=== PATIENT | female | born 1975 | race Caucasian/White ===

== ENCOUNTER 2017-10-24 00:38 | Emergency (ER) | payer BC ==
[2017-10-24 00:55] VITALS: BP 150/101; PULSE 100; RESP 18; TEMP 98.2
[2017-10-24] MEDS ORDERED: LIDOCAINE 1% (PF) 10MG/ML VIAL SQ STA (01:05)
[2017-10-24] MEDS ORDERED: DIPH,PERTUS(ACELL)TETVAC-LF 0.5 ML VIAL IM ONE (01:05)
[2017-10-24] MEDS ORDERED: LIDOCAINE 1% INJ 10MG/ML (20 ML MDV) SQ ONE (01:35)
--- NOTE | 2017-10-24 01:36 | XR ---
EXAMINATION TYPE: XR knee complete RT DATE OF EXAM: 10/24/2017 COMPARISON: NONE HISTORY: Knee pain TECHNIQUE: 3 views FINDINGS: I see no fracture nor dislocation. There is soft tissue deformity and small opacities consi stent with laceration and foreign bodies at the anterior aspect of the tibial tubercle. There is no s ign of joint effusion. IMPRESSION: Soft tissue foreign bodies and laceration deformity. No fracture.
--- NOTE | 2017-10-24 02:23 | ED ---
Wound/Laceration HPI - General Chief Complaint: Wound/Laceration Stated Complaint: fall, knee laceration Time Seen by Provider: 10/24/17 00:58 Source: patient, RN notes reviewed, old records reviewed Mode of arrival: wheelchair Limitations: no limitations - History of Present Illness Initial Comments: Patient is a 42 year old female presents with R knee laceration. Patient reports that she was standing on a table, and fell causing the laceration. She reports she fell onto gravel. She does not believe her TDAP is up to date. She denies any other injury. - Related Data Previous Rx's Medication Instructions Recorded Cephalexin [Keflex] 500 mg PO Q8HR #21 cap 10/24/17 Allergies Allergy/AdvReac Type Severity Reaction Status Date / Time No Known Allergies Allergy Verified 10/24/17 00:55 Review of Systems ROS Statement: Those systems with pertinent positive or pertinent negative responses have been documented in the HPI. ROS Other: All systems not noted in ROS Statement are negative. Past Medical History Past Medical History: No Reported History History of Any Multi-Drug Resistant Organisms: None Reported Past Surgical History: Bariatric Surgery, Bladder Surgery, Section, Hysterectomy Additional Past Surgical History / Comment(s): gastric bypass Past Psychological History: Depression Smoking Status: Light tobacco smoker Past Alcohol Use History: Occasional Past Drug Use History: None Reported General Exam - General Exam Comments Initial Comments: This is a 42 year old female, no distress. Limitations: no limitations General appearance: alert, appears intoxicated Head exam: Present: atraumatic, normocephalic, normal inspection Eye exam: Present: normal appearance, PERRL, EOMI. Absent: scleral icterus, conjunctival injection, periorbital swelling ENT exam: Present: normal exam, mucous membranes moist Neck exam: Present: normal inspection. Absent: tenderness, meningismus, lymphadenopathy Respiratory exam: Present: normal lung sounds bilaterally. Absent: respiratory distress, wheezes, rales, rhonchi, stridor Cardiovascular Exam: Present: regular rate, normal rhythm, normal heart sounds. Absent: systolic murmur, diastolic murmur, rubs, gallop, clicks GI/Abdominal exam: Present: soft, normal bowel sounds. Absent: distended, tenderness, guarding, rebound, rigid Right Upper Leg exam: Present: normal inspection, full ROM Knee exam: Present: full ROM, laceration (5cm laceration irregular U shaped pattern.). Absent: normal inspection Lower Leg exam: Present: normal inspection, full ROM Back exam: Present: normal inspection Neurological exam: Present: alert, oriented X3, CN II-XII intact Psychiatric exam: Present: normal affect, normal mood Skin exam: Present: warm, dry, intact, normal color. Absent: rash Course Vital Signs 10/24/17 00:51 Temperature 98.2 F Pulse Rate 100 Respiratory 18 Rate Blood Pressure 150/101 O2 Sat by Pulse 97 Oximetry Procedures - Laceration Laceration #1 Indication: laceration Site: lower extremity (R knee) Size (cm): 5 Description: irregular ( U shaped ), contaminated (dirt) Depth: involves muscle layer Anesthetic Used: lidocaine 1% Anesthesia Technique: local infiltration Amount (mls): 10 Pre-repair: wound explored, irrigated extensively Type of Sutures: nylon Size of Sutures: 4-0 Number of Sutures: 9 Technique: simple, interrupted Patient Tolerated Procedure: well, no complications Medical Decision Making - Medical Decision Making This is a 42 year old female with R knee laceration. Xray shows no fracture, soft tissue deformity with small foreign body. I throughly irrigated the wound with saline and betadine. Wound was well approximated with 9 sutures. Discussed monitoring for infection. Will be on keflex prophylaxis. Discussed suture care. Return parameters discussed. - Radiology Data Radiology results: report reviewed Soft tissue foreign body. No fracture. Disposition Clinical Impression: Laceration of knee Disposition: HOME SELF-CARE Condition: Good Instructions: Care For Your Stitches (ED), Laceration (ED) Additional Instructions: Please return to the emergency room in 8-10 days to have sutures removed. Please leave wound covered for the first 24-48 hours and then leave open to air after that time. Please use clean soap and water to clean the suture area to prevent scabbing over the top of your sutures. Please watch for any signs of infection which may include but not limited to increased pain, swelling, redness , fever or chills. Please return to the emergency room if any signs of infection do occur. Please return to the emergency room for any other concerns or complications. Prescriptions: Cephalexin [Keflex] 500 mg PO Q8HR #21 cap Is patient prescribed a controlled substance at d/c from ED?: No When asked, does pt state using other controlled substances?: No If prescribed controlled substance>3 days was MAPS reviewed?: No If opioid is for acute pain is fill amount 7 days or less?: No If Rx opioid, was Start Talking consent form obtained?: No Referrals: Tony Fulton MD [Primary Care Provider] - 1-2 days Time of Disposition: 02:22
== END 2017-10-24 02:30 | disposition home or self-care (01) ==
LOC: EC 00:38
DX: S81.021A Laceration with foreign body, right knee, initial encounter (principal); F10.129 Alcohol abuse with intoxication, unspecified; F17.200 Nicotine dependence, unspecified, uncomplicated; Z23 Encounter for immunization; W19.XXXA Unspecified fall, initial encounter; Y93.89 Activity, other specified; Y92.29 Other specified public building as the place of occurrence of the external cause
CPT/HCPCS: 73562; 90715; 99284; 12002; 90471; J2001

== ENCOUNTER 2020-03-27 14:07 | Inpatient (IN) | payer BC ==
[2020-03-27] MEDS ORDERED: PROPRANOLOL 40 MG TAB PO STA (15:15)
--- NOTE | 2020-03-27 15:24 | ED ---
General Adult HPI - General Chief complaint: Recheck/Abnormal Lab/Rx Stated complaint: High BP Time Seen by Provider: 03/27/20 14:43 Source: patient, RN notes reviewed, old records reviewed Mode of arrival: ambulatory Limitations: no limitations - History of Present Illness Initial comments: 44-year-old female presents from her neurologist office with elevated blood pressure. She states she was seen at her primary care physician approximately one week ago and her blood pressure in the 180s systolic. She had presented to the neurologist office for an initial evaluation was noted to have an elevated blood pressure 240/140. She has no previous history of hypertension. She is not currently on any medication but was recommended to start propranolol. Both for history of migraine headache and new-onset hypertension. She had not started this medication yet, not currently on any medication. She does have history of migraine headaches but states currently she does not have any headache. She has a family history of cerebral aneurysm and is awaiting MRA. She denies chest pain. Denies dyspnea. Denies focal numbness or weakness. - Related Data Previous Rx's Medication Instructions Recorded Cephalexin [Keflex] 500 mg PO Q8HR #21 cap 10/24/17 Allergies Allergy/AdvReac Type Severity Reaction Status Date / Time No Known Allergies Allergy Verified 03/27/20 14:26 Review of Systems ROS Statement: Those systems with pertinent positive or pertinent negative responses have been documented in the HPI. ROS Other: All systems not noted in ROS Statement are negative. Past Medical History Past Medical History: No Reported History History of Any Multi-Drug Resistant Organisms: None Reported Past Surgical History: Bariatric Surgery, Bladder Surgery, Section, Hysterectomy Additional Past Surgical History / Comment(s): gastric bypass Past Psychological History: Depression Past Alcohol Use History: Occasional Past Drug Use History: None Reported General Exam Limitations: no limitations General appearance: alert, in no apparent distress Head exam: Present: atraumatic, normocephalic Eye exam: Present: normal appearance, PERRL ENT exam: Present: normal exam Neck exam: Present: normal inspection. Absent: tenderness, meningismus Respiratory exam: Present: normal lung sounds bilaterally. Absent: respiratory distress, wheezes Cardiovascular Exam: Present: regular rate, normal rhythm GI/Abdominal exam: Present: soft. Absent: distended, tenderness, guarding Extremities exam: Present: normal inspection, normal capillary refill. Absent: pedal edema, calf tenderness Neurological exam: Present: alert, oriented X3, CN II-XII intact, normal gait. Absent: motor sensory deficit Psychiatric exam: Present: normal affect, normal mood Skin exam: Present: warm, dry, intact. Absent: cyanosis, diaphoretic Course Vital Signs 03/27/20 03/27/20 14:23 16:13 Temperature 98.7 F Pulse Rate 96 Respiratory 20 Rate Blood Pressure 247/147 248/136 O2 Sat by Pulse 96 Oximetry EKG Findings - EKG Comments: EKG Findings:: EKG: Normal sinus rhythm, inferior infarct, anterior infarct, age undetermined, no active ST segment elevation, rate of 80, OR interval 126, QRS duration 88, QTC 475. Medical Decision Making - Medical Decision Making 44-year-old female presenting with significant elevated blood pressure from the neurologist office. They have been recommended that the patient started on propranolol. This medication was given in the emergency department. Her blood pressure is not improved with initial oral medication. She started on hydralazine IV. She has a normal CBC, normal CMP, normal kidney function, negative troponin, chest x-ray negative for focal pneumonia, no pulmonary edema. I did perform a CT and CT angiography given her recurrent headache and family history of cerebral aneurysm. This is negative. I discussed case with Oswald giron for Dr. Fulton, will admit, cardiology is placed on consult. - Lab Data Result diagrams: 03/27/20 15:24 03/27/20 15:24 Lab Results 03/27/20 03/27/20 03/27/20 Range/Units 15:24 15:24 15:24 WBC 5.3 (3.8-10.6) k/uL RBC 4.36 (3.80-5.40) m/uL Hgb 15.6 (11.4-16.0) gm/dL Hct 45.0 (34.0-46.0) % MCV 103.2 H (80.0-100.0) fL MCH 35.7 H (25.0-35.0) pg MCHC 34.6 (31.0-37.0) g/dL RDW 12.3 (11.5-15.5) % Plt Count 210 (150-450) k/uL MPV 6.9 Neutrophils % 51 % Lymphocytes % 39 % Monocytes % 7 % Eosinophils % 1 % Basophils % 1 % Neutrophils # 2.7 (1.3-7.7) k/uL Lymphocytes # 2.1 (1.0-4.8) k/uL Monocytes # 0.4 (0-1.0) k/uL Eosinophils # 0.1 (0-0.7) k/uL Basophils # 0.1 (0-0.2) k/uL Macrocytosis Slight PT 9.5 (9.0-12.0) sec INR 0.9 (<1.2) APTT 23.8 (22.0-30.0) sec Sodium 136 L (137-145) mmol/L Potassium 4.0 (3.5-5.1) mmol/L Chloride 104 (98-107) mmol/L Carbon Dioxide 27 (22-30) mmol/L Anion Gap 5 mmol/L BUN 18 H (7-17) mg/dL Creatinine 1.02 (0.52-1.04) mg/dL Est GFR (CKD-EPI)AfAm 77 (>60 ml/min/1.73 sqM) Est GFR (CKD-EPI)NonAf 67 (>60 ml/min/1.73 sqM) Glucose 108 H (74-99) mg/dL Calcium 9.5 (8.4-10.2) mg/dL Magnesium 2.1 (1.6-2.3) mg/dL Total Bilirubin 0.8 (0.2-1.3) mg/dL AST 34 (14-36) U/L ALT 32 (4-34) U/L Alkaline Phosphatase 74 (38-126) U/L Troponin I (0.000-0.034) ng/mL NT-Pro-B Natriuret Pep pg/mL Total Protein 7.4 (6.3-8.2) g/dL Albumin 4.5 (3.5-5.0) g/dL 03/27/20 03/27/20 Range/Units 15:24 15:24 WBC (3.8-10.6) k/uL RBC (3.80-5.40) m/uL Hgb (11.4-16.0) gm/dL Hct (34.0-46.0) % MCV (80.0-100.0) fL MCH (25.0-35.0) pg MCHC (31.0-37.0) g/dL RDW (11.5-15.5) % Plt Count (150-450) k/uL MPV Neutrophils % % Lymphocytes % % Monocytes % % Eosinophils % % Basophils % % Neutrophils # (1.3-7.7) k/uL Lymphocytes # (1.0-4.8) k/uL Monocytes # (0-1.0) k/uL Eosinophils # (0-0.7) k/uL Basophils # (0-0.2) k/uL Macrocytosis PT (9.0-12.0) sec INR (<1.2) APTT (22.0-30.0) sec Sodium (137-145) mmol/L Potassium (3.5-5.1) mmol/L Chloride (98-107) mmol/L Carbon Dioxide (22-30) mmol/L Anion Gap mmol/L BUN (7-17) mg/dL Creatinine (0.52-1.04) mg/dL Est GFR (CKD-EPI)AfAm (>60 ml/min/1.73 sqM) Est GFR (CKD-EPI)NonAf (>60 ml/min/1.73 sqM) Glucose (74-99) mg/dL Calcium (8.4-10.2) mg/dL Magnesium (1.6-2.3) mg/dL Total Bilirubin (0.2-1.3) mg/dL AST (14-36) U/L ALT (4-34) U/L Alkaline Phosphatase (38-126) U/L Troponin I 0.014 (0.000-0.034) ng/mL NT-Pro-B Natriuret Pep 1150 pg/mL Total Protein (6.3-8.2) g/dL Albumin (3.5-5.0) g/dL Critical Care Time Critical Care Time: Yes Total Critical Care Time: 35 Disposition Clinical Impression: Hypertensive urgency Disposition: ADMITTED IP TO THIS [facility] Condition: Serious Is patient prescribed a controlled substance at d/c from ED?: No Referrals: Tony Fulton MD [Primary Care Provider] - 1-2 days Decision to Admit Reason: Admit from EC Decision Date: 03/27/20 Decision Time: 17:21
[2020-03-27 15:34] LABS: Basophils # (A) 0.1 k/uL (0-0.2); Basophils % (A) 1 %; Eosinophils # (A) 0.1 k/uL (0-0.7); Eosinophils % (A) 1 %; HGB 15.6 gm/dL (11.4-16.0); Lymphocytes # (A) 2.1 k/uL (1.0-4.8); Lymphocytes % (A) 39 %; MCH 35.7 pg (25.0-35.0); MCHC 34.6 g/dL (31.0-37.0); MCV 103.2 fL (80.0-100.0); Macrocytosis Slight; Mean Platelet Volume 6.9; Monocytes # (A) 0.4 k/uL (0-1.0); Monocytes % (A) 7 %; Neutrophils # (A) 2.7 k/uL (1.3-7.7); Neutrophils % (A) 51 %; Platelet Count 210 k/uL (150-450); RBC 4.36 m/uL (3.80-5.40); RDW 12.3 % (11.5-15.5); WBC 5.3 k/uL (3.8-10.6)
--- NOTE | 2020-03-27 15:38 | XR ---
EXAMINATION TYPE: XR chest 2V DATE OF EXAM: 03/27/2020 COMPARISON: 08/08/2011 HISTORY: Chest pain TECHNIQUE: Frontal and lateral views of the chest are obtained. FINDINGS: There is no focal air space opacity. No evidence for pneumothorax. No pleural effusion. The cardiac silhouette size is within normal limits. The osseous structures are grossly intact. IMPRESSION: 1. No acute cardiopulmonary process.
[2020-03-27 15:42] LABS: INR 0.9 (<1.2); Partial Thromboplastin Time 23.8 sec (22.0-30.0); Prothrombin Time 9.5 sec (9.0-12.0)
[2020-03-27 15:43] LABS: Albumin 4.5 g/dL (3.5-5.0); Calcium 9.5 mg/dL (8.4-10.2); Magnesium 2.1 mg/dL (1.6-2.3); Total Bilirubin 0.8 mg/dL (0.2-1.3); Total Protein 7.4 g/dL (6.3-8.2)
--- NOTE | 2020-03-27 16:17 | CT ---
EXAMINATION TYPE: CT brain wo con DATE OF EXAM: 03/27/2020 COMPARISON: None. HISTORY: Headache and hypertension. CT DLP: 1283 mGycm. Automated Exposure Control for Dose Reduction was Utilized. TECHNIQUE: CT scan of the head is performed without contrast. FINDINGS: There is no acute intracranial hemorrhage or midline shift identified. Mild ventricular a nd sulcal prominence. Mild low-attenuation in the periventricular white matter . Somewhat empty sell a morphology. The globes are intact and the visualized sinuses are clear. IMPRESSION: Mild diffuse cerebral atrophy and chronic small vessel ischemic changes.
--- NOTE | 2020-03-27 16:33 | CT ---
EXAMINATION TYPE: CT angio COW [employer] DATE OF EXAM: 03/27/2020 COMPARISON: None. HISTORY: Headache and hypertension. CT DLP: 745.7 mGycm. Automated Exposure Control for Dose Reduction was Utilized. TECHNIQUE: CTA scan of the head is performed with IV Contrast, patient injected with 100 mL of Isov ue 370. Three-D reconstructed images are created on a independent workstation and reviewed. FINDINGS: There is dominant left vertebral artery filling the basilar artery. There are hypoplastic b ilateral posterior communicating arteries. No significant focal stenosis or aneurysmal change in the posterior circulation. There is a patent anterior communicating artery seen best on the MIP images. No significant focal dasha nosis or aneurysmal change in the anterior circulation. IMPRESSION: No focal aneurysm at level of the [employer].
[2020-03-27] MEDS ORDERED: hydrALAZINE HCL 20 MG/ML 1 ML VIAL IVP STA (16:41)
[2020-03-27] MEDS ORDERED: NALOXONE 0.4 MG/ML 1 ML VIAL IV PRN (17:13)
[2020-03-27] MEDS ORDERED: ACETAMINOPHEN TAB 325 MG TAB PO PRN (17:13)
[2020-03-27] MEDS ORDERED: LORazepam 2 MG/ML INJ IV PRN (17:13)
[2020-03-27] MEDS ORDERED: hydrALAZINE HCL 20 MG/ML 1 ML VIAL IVP PRN (17:15)
[2020-03-27] MEDS ORDERED: LORazepam 2 MG/ML INJ IV STA (18:49)
[2020-03-27] MEDS: SODIUM CHLORIDE 0.9% 1,000 ML IV SCH (23:00)
[2020-03-27] MEDS: PROPRANOLOL 40 MG TAB PO SCH (23:35)
[2020-03-28] MEDS: lamoTRIgine 100 MG TAB PO SCH ×3 (01:07→21:27)
[2020-03-28 03:26] LABS: Cholesterol 198 mg/dL (<200); HDL Cholesterol 95 mg/dL (40-60); LDL Cholesterol,Calculated 49 mg/dL (0-99); Triglycerides 270 mg/dL (<150)
[2020-03-28] MEDS: SODIUM CHLORIDE 0.9% 1,000 ML IV SCH (08:43)
[2020-03-28] MEDS ORDERED: lisinopriL 10 MG TAB PO SCH (09:00)
[2020-03-28] MEDS: CITALOPRAM HYDROBROMIDE 20 MG TAB PO SCH (09:17)
[2020-03-28] MEDS: PROPRANOLOL 40 MG TAB PO SCH ×2 (09:17→21:27)
[2020-03-28] MEDS: buPROPion XL 150 MG TAB.ER.24H PO SCH (09:17)
[2020-03-28] MEDS: MORPHINE SULFATE 2 MG/ML SYRINGE IVP PRN ×2 (09:18→17:24)
[2020-03-28] MEDS ORDERED: lisinopriL 10 MG TAB PO STA (11:14)
--- NOTE | 2020-03-28 13:36 | P.CRDCN ---
History of Present Illness Consult date: 03/28/20 History of present illness: CHIEF COMPLAINT: hypertension HISTORY OF PRESENT ILLNESS: This is a 44-year old female with a past medical history significant for migraines. Patient does not follow with a tattoo identifier. We have been asked to see the patient in consultation for hypertension. Patient denies a previous history of migraines. She states she was evaluated at her PCP office about a week ago and was prescribed propanolol as her blood pressure was running in the 180s.. She states she did not start taking this medication because she was supposed to be evaluated by a neurologist and wanted to wait to see what he had to say in regards to her migraines. She states that she saw a neurologist yesterday and [facility] and her blood pressure was noted to be in the 240/120s and she was instructed to come to the emergency room. Patient denies any shortness of breath or chest pain. She does report feeling dizzy at times. DIAGNOSTICS: EKG reveals sinus mechanism with an isolated Q wave in lead II Chest xray negative for acute process Laboratory data: WBC 5.3. Hemoglobin 15.6. Platelet count 210. Sodium 136. Potassium 4.0. BUN 18. Creatinine 1.02. Magnesium 2.1. Current home cardiac medications include propranolol 40 mg twice a day REVIEW OF SYSTEMS: At the time of my exam: CONSTITUTIONAL: Denies fever or chills. HEENT: Denies blurred vision, vision changes, or eye pain. Denies hemoptysis CARDIOVASCULAR: Denies chest pain, orthopnea, PND or palpitations RESPIRATORY: No shortness of breath. GASTROINTESTINAL: Denies abdominal pain. Denies nausea or vomiting. HEMATOLOGIC: Denies bleeding disorders. GENITOURINARY: Denies any blood in urine. SKIN: Denies pruitis. Denies rash. PHYSICAL EXAM: VITAL SIGNS: Reviewed. GENERAL: Well-developed in no acute distress. HEENT: Head is normocephalic. Pupils are equal, round. Sclerae anicteric. Mucous membranes of the mouth are moist. Neck supple. No JVD or thyromegaly LUNGS: Respirations even and unlabored. Lungs essentially clear to auscultation bilaterally. HEART: Regular rate and rhythm. S1 and S2 heard. ABDOMEN: Soft. Nondistended. Nontender. EXTREMITIES: Normal range of motion. No clubbing or cyanosis. Peripheral pulses intact. No lower extremity edema NEUROLOGIC: Awake and alert. Oriented x 3. ASSESSMENT: Hypertension, uncontrolled Migraines PLAN: Obtain 2D echo to assess cardiac structure and function Add lisinopril 20mg daily Monitor BP Anticipate discharge home tomorrow Nurse practitioner note has been reviewed by physician. Signing provider agrees with the documented findings, assessment, and plan of care. Past Medical History Past Medical History: No Reported History History of Any Multi-Drug Resistant Organisms: None Reported Past Surgical History: Bariatric Surgery, Bladder Surgery, Section, Hysterectomy Additional Past Surgical History / Comment(s): gastric bypass Past Anesthesia/Blood Transfusion Reactions: No Reported Reaction Past Psychological History: Depression Smoking Status: Former smoker Past Drug Use History: None Reported Medications and Allergies Home Medications Medication Instructions Recorded Confirmed Type Citalopram Hydrobromide 40 mg PO DAILY 03/27/20 03/27/20 History [Citalopram HBr] buPROPion XL [Wellbutrin XL] 450 mg PO DAILY 03/27/20 03/27/20 History lamoTRIgine [LaMICtal] 150 mg PO BID 03/27/20 03/27/20 History Allergies Allergy/AdvReac Type Severity Reaction Status Date / Time No Known Allergies Allergy Verified 03/27/20 18:22 Physical Exam Vitals: Vital Signs Temp Pulse Pulse Resp BP BP Pulse Ox 03/28/20 08:47 97 03/28/20 04:00 84 16 189/95 98 03/28/20 02:00 74 18 03/28/20 01:06 188/112 03/28/20 00:19 74 18 236/135 94 L 03/27/20 23:45 200/136 98 03/27/20 22:09 182/128 03/27/20 19:48 190/130 03/27/20 19:05 200/158 03/27/20 18:47 94 18 231/138 98 03/27/20 17:52 216/120 03/27/20 16:13 248/136 03/27/20 14:23 98.7 F 96 20 247/147 96 Intake and Output 03/27/20 03/28/20 03/28/20 22:59 06:59 14:59 Intake Total 180 Output Total 0 Balance 180 Intake: Oral 180 Output: Urine 0 Stool 0 Other: Voiding Method Toilet # Voids 1 0 # Bowel Movements 0 Weight 83.4 kg Results 03/27/20 15:24 03/27/20 15:24 Cardiac Enzymes 03/27/20 03/27/20 03/27/20 Range/Units 15:24 15:24 19:51 AST 34 (14-36) U/L Troponin I 0.014 0.015 (0.000-0.034) ng/mL 03/27/20 Range/Units 22:44 AST (14-36) U/L Troponin I 0.014 (0.000-0.034) ng/mL Coagulation 03/27/20 Range/Units 15:24 PT 9.5 (9.0-12.0) sec APTT 23.8 (22.0-30.0) sec Lipids 03/27/20 Range/Units 15:24 Triglycerides 270 H (<150) mg/dL Cholesterol 198 (<200) mg/dL HDL Cholesterol 95 H (40-60) mg/dL CBC 03/27/20 Range/Units 15:24 WBC 5.3 (3.8-10.6) k/uL RBC 4.36 (3.80-5.40) m/uL Hgb 15.6 (11.4-16.0) gm/dL Hct 45.0 (34.0-46.0) % Plt Count 210 (150-450) k/uL Comprehensive Metabolic Panel 03/27/20 Range/Units 15:24 Sodium 136 L (137-145) mmol/L Potassium 4.0 (3.5-5.1) mmol/L Chloride 104 (98-107) mmol/L Carbon Dioxide 27 (22-30) mmol/L BUN 18 H (7-17) mg/dL Creatinine 1.02 (0.52-1.04) mg/dL Glucose 108 H (74-99) mg/dL Calcium 9.5 (8.4-10.2) mg/dL AST 34 (14-36) U/L ALT 32 (4-34) U/L Alkaline Phosphatase 74 (38-126) U/L Total Protein 7.4 (6.3-8.2) g/dL Albumin 4.5 (3.5-5.0) g/dL Current Medications Generic Name Dose Route Start Last Admin Trade Name Freq PRN Reason Stop Dose Admin Acetaminophen 650 mg 03/27/20 17:13 03/28/20 12:14 Acetaminophen Tab 325 Mg Tab PO 650 mg Q6HR PRN Administration Mild Pain or Fever > 100.5 Bupropion HCl 300 mg 03/28/20 09:00 03/28/20 09:17 Bupropion Xl 150 Mg Tab.Er.24h PO 300 mg DAILY NADIA Administration Citalopram Hydrobromide 40 mg 03/28/20 09:00 03/28/20 09:17 Citalopram Hydrobromide 20 Mg Tab PO 40 mg DAILY NADIA Administration Lamotrigine 150 mg 03/28/20 00:45 03/28/20 09:16 Lamotrigine 100 Mg Tab PO 150 mg BID NADIA Administration Lisinopril 20 mg 03/29/20 09:00 Lisinopril 20 Mg Tab PO DAILY NADIA Lorazepam 0.5 mg 03/27/20 17:13 Lorazepam 2 Mg/Ml Inj IV Q6HR PRN Anxiety Morphine Sulfate 2 mg 03/28/20 01:03 03/28/20 09:18 Morphine Sulfate 2 Mg/Ml Syringe IVP 2 mg Q6H PRN Administration Pain/Discomfort Naloxone HCl 0.2 mg 03/27/20 17:13 Naloxone 0.4 Mg/Ml 1 Ml Vial IV Q2M PRN Opioid Reversal Propranolol HCl 40 mg 03/28/20 00:00 03/28/20 09:17 Propranolol 40 Mg Tab PO 40 mg BID NADIA Administration Intake and Output 03/27/20 03/28/20 03/28/20 22:59 06:59 14:59 Intake Total 180 Output Total 0 Balance 180 Intake: Oral 180 Output: Urine 0 Stool 0 Other: Voiding Method Toilet # Voids 1 0 # Bowel Movements 0 Weight 83.4 kg 03/27/20 15:24 03/27/20 15:24
[2020-03-28 15:53] VITALS: RESP 18
--- NOTE | 2020-03-28 18:39 | P.HPIM ---
History of Present Illness H&P Date: 03/28/20 Chief Complaint: hypertension 44-year-old female presented to the emergency department with elevated blood pressuresent from neurologists office due to elevated blood pressure. Patient's blood pressure was noted to be systolic above 200s and diastolic above 100spatient received IV hydralazine, and started Inderal which was prescribed by our services for hypertension and migraines. Patient did not start the Inderal due to waiting on neurologist. Patient denied headache, blurred vision, nausea, weakness, numbness, and tingling. patient denied chest pain, shortness of breath or additional symptoms.Consultation for cardiology for blood pressure management Review of Systems Constitutional: Reports as per HPI Cardiovascular: Reports as per HPI Respiratory: Reports as per HPI Gastrointestinal: Reports as per HPI Genitourinary: Reports as per HPI Musculoskeletal: Reports as per HPI Integumentary: Reports as per HPI Neurological: Reports as per HPI Psychiatric: Reports as per HPI Endocrine: Reports as per HPI Hematologic/Lymphatic: Reports as per HPI Allergic/Immunologic: Reports as per HPI Past Medical History Additional Past Medical History / Comment(s): migraines/mixed anxiety and depression History of Any Multi-Drug Resistant Organisms: None Reported Past Surgical History: Bariatric Surgery, Bladder Surgery, Section, Hysterectomy Additional Past Surgical History / Comment(s): gastric bypass Past Anesthesia/Blood Transfusion Reactions: No Reported Reaction Past Psychological History: Depression Smoking Status: Former smoker Past Drug Use History: None Reported Medications and Allergies Home Medications and Allergies Comment(s): medications and ALLERGIES reviewed Home Medications Medication Instructions Recorded Confirmed Type Citalopram Hydrobromide 40 mg PO DAILY 03/27/20 03/27/20 History [Citalopram HBr] buPROPion XL [Wellbutrin XL] 450 mg PO DAILY 03/27/20 03/27/20 History lamoTRIgine [LaMICtal] 150 mg PO BID 03/27/20 03/27/20 History Allergies Allergy/AdvReac Type Severity Reaction Status Date / Time No Known Allergies Allergy Verified 03/27/20 18:22 Physical Exam Vitals: Vital Signs Temp Pulse Pulse Resp BP BP Pulse Ox 03/28/20 12:00 98.3 F 63 18 156/96 97 03/28/20 08:47 97 03/28/20 08:35 98.1 F 68 18 169/87 97 03/28/20 04:00 84 16 189/95 98 03/28/20 02:00 74 18 03/28/20 01:06 188/112 03/28/20 00:19 74 18 236/135 94 L 03/27/20 23:45 200/136 98 03/27/20 22:09 182/128 03/27/20 19:48 190/130 03/27/20 19:05 200/158 03/27/20 18:47 94 18 231/138 98 Intake and Output 03/28/20 03/28/20 03/28/20 06:59 14:59 22:59 Intake Total 417 237 Output Total 0 0 Balance 417 237 Intake: Oral 417 237 Output: Urine 0 0 Stool 0 0 Other: Voiding Method Toilet # Voids 1 0 0 # Bowel Movements 0 0 Weight 83.4 kg - Constitutional General appearance: cooperative - EENT Eyes: EOMI, PERRLA ENT: normal oropharynx Ears: bilateral: normal - Neck Carotids: bilateral: upstroke normal Thyroid: bilateral: normal size - Respiratory Respiratory: bilateral: CTA - Cardiovascular normal sinus rhythm Heart rate: 75 Rhythm: regular Heart sounds: normal: S1, S2 dorsalis pedis Peripheral Pulses: bilateral: Normal radial pulse Peripheral Pulses: bilateral: Normal - Gastrointestinal General gastrointestinal: normal bowel sounds - Integumentary Integumentary: normal turgor - Neurologic Neurologic: CNII-XII intact - Musculoskeletal Musculoskeletal: gait normal, strength equal bilaterally - Psychiatric Psychiatric: A&O x's 3, appropriate affect, intact judgment & insight Results CBC & Chem 7: 03/27/20 15:24 03/27/20 15:24 Labs: Abnormal Lab Results - Last 24 Hours (Table) 03/27/20 Range/Units 15:24 Triglycerides 270 H (<150) mg/dL HDL Cholesterol 95 H (40-60) mg/dL Abdominal x-ray: report reviewed CT Scan - head: report reviewed Thrombosis Risk Factor Assmnt - Choose All That Apply Any of the Below Risk Factors Present?: Yes Each Factor Represents 1 point: Age 41-60 years Other Risk Factors: No Other congenital or acquired thrombophilia - If yes, enter type in comment: No Thrombosis Risk Factor Assessment Total Risk Factor Score: 1 Thrombosis Risk Factor Assessment Level: Low Risk Assessment and Plan Assessment: hypertensive urgency Migraines Mixed anxiety and depression (1) Hypertensive urgency Narrative/Plan: IV hydralazine to keep systolic blood pressure less than 200 Initiate Inderal 40 mg by mouth twice a day Cardiology consult for recommendations and treatment plan Current Visit: Yes Status: Acute Code(s): I16.0 - HYPERTENSIVE URGENCY SNOMED Code(s): 309986961 Plan: consultation with cardiology for recommendations and treatment plan regarding hypertensive urgency IV hydralazine to keep systolic blood pressures less than 200s Initiate Inderal 40 mg by mouth twice a day for hypertension and migraine prophylaxis Continue home medications Continue medical management Hopeful discharge within 24 hours Time with Patient: Greater than 30
[2020-03-28 19:24] LABS: Albumin 3.3 g/dL (3.5-5.0); Calcium 8.6 mg/dL (8.4-10.2); Potassium 4.6 mmol/L (3.5-5.1); Total Bilirubin 0.5 mg/dL (0.2-1.3); Total Protein 5.8 g/dL (6.3-8.2)
[2020-03-29] MEDS ORDERED: hydrALAZINE HCL 20 MG/ML 1 ML VIAL IVP STA (02:26)
[2020-03-29 03:59] VITALS: BP 116/67
[2020-03-29 07:37] LABS: Basophils % (A) 1 %; Eosinophils # (A) 0.1 k/uL (0-0.7); Eosinophils % (A) 2 %; HCT 40.5 % (34.0-46.0); HGB 13.2 gm/dL (11.4-16.0); Lymphocytes # (A) 2.2 k/uL (1.0-4.8); Lymphocytes % (A) 44 %; MCH 34.2 pg (25.0-35.0); MCHC 32.7 g/dL (31.0-37.0); MCV 104.7 fL (80.0-100.0); Macrocytosis Slight; Mean Platelet Volume 7.2; Monocytes # (A) 0.2 k/uL (0-1.0); Monocytes % (A) 4 %; Neutrophils # (A) 2.4 k/uL (1.3-7.7); Neutrophils % (A) 47 %; Platelet Count 158 k/uL (150-450); RBC 3.87 m/uL (3.80-5.40); RDW 12.9 % (11.5-15.5)
--- NOTE | 2020-03-29 07:47 | ECHOF ---
Referral Reason:hypertension, LV function MEASUREMENTS -------- HEIGHT: 162.6 cm WEIGHT: 83.5 kg BP: IVSd: 1.2 cm (0.6 - 1.1) LVIDd: 4.1 cm (3.9 - 5.3) LVPWd: 1.1 cm (0.6 - 1.1) IVSs: 1.5 cm LVIDs: 3.0 cm LVPWs: 1.3 cm LA Diam: 3.2 cm (2.7 - 3.8) LAESV Index (A-L): 24.66 ml/m Ao Diam: 2.6 cm (2.0 - 3.7) AV Cusp: 1.6 cm (1.5 - 2.6) MV EXCURSION: 17.354 mm (> 18.000) MV EF SLOPE: 108 mm/s (70 - 150) EPSS: 0.2 cm MV E Connor: 0.66 m/s MV DecT: 248 ms MV A Connor: 0.86 m/s MV E/A Ratio: 0.76 AR PHT: 558 ms RAP: 5.00 mmHg RVSP: 26.20 mmHg FINDINGS -------- Sinus rhythm. This was a technically good study. The left ventricular size is normal. There is borderline concentric left ventricular hypertrophy. Overall left ventricular systolic function is low-normal with, an EF between 50 - 55 %. The right ventricle is normal in size. Normal LA size by volume 22+/-6 ml/m2. The right atrial size is normal. There is mild aortic regurgitation. Mild mitral regurgitation is present. Mild tricuspid regurgitation present. Right ventricular systolic pressure is normal at < 35 mmHg. There is no pulmonic regurgitation present. The aortic root size is normal. There is no pericardial effusion. CONCLUSIONS -------- 1. The left ventricular size is normal. 2. There is borderline concentric left ventricular hypertrophy. 3. Overall left ventricular systolic function is low-normal with, an EF between 50 - 55 %. 4. The right ventricle is normal in size. 5. Normal LA size by volume 22+/-6 ml/m2. 6. The right atrial size is normal. 7. There is mild aortic regurgitation. 8. Mild mitral regurgitation is present. 9. Mild tricuspid regurgitation present. 10. The aortic root size is normal. 11. There is no pericardial effusion. MAC DEVELOPER: Mary Wright RDCS
[2020-03-29] MEDS ORDERED: lisinopriL 20 MG TAB PO SCH ×2 (09:00→21:00)
--- NOTE | 2020-03-29 09:10 | P.PN ---
Subjective Progress Note Date: 03/29/20 Principal diagnosis: Hypertensive urgency 44-year-old female resting comfortably in bed. Patient denied headache, blurred vision, nausea, weakness, numbness, and tingling. patient denied chest pain, shortness of breath or additional symptoms.Consultation for cardiology for blood pressure management. Objective - Vital Signs Vital signs: Vital Signs Temp 98.1 F 03/29/20 03:58 Pulse 64 03/29/20 03:58 Resp 18 03/29/20 03:58 BP 116/67 03/29/20 03:58 Pulse Ox 97 03/29/20 03:58 Intake & Output 03/28/20 03/29/20 03/29/20 18:59 06:59 18:59 Intake Total 654 Output Total 0 Balance 654 Weight 84.3 kg Intake: Oral 654 Output: Urine 0 Stool 0 Other: Voiding Method Toilet # Voids 0 3 # Bowel Movements 0 - Constitutional General appearance: Present: average body habitus, no acute distress - EENT Eyes: Present: EOMI, PERRLA Ears: bilateral: normal - Neck Neck: Present: normal ROM Carotids: bilateral: upstroke normal Thyroid: bilateral: normal size - Respiratory Respiratory: bilateral: CTA - Cardiovascular Details: Normal sinus rhythm Heart rate: 78 Rhythm: regular Heart sounds: normal: S1, S2 - Gastrointestinal General gastrointestinal: Present: normal bowel sounds - Integumentary Integumentary: Present: normal turgor - Neurologic Neurologic: Present: CNII-XII intact - Musculoskeletal Musculoskeletal: Present: gait normal, strength equal bilaterally - Psychiatric Psychiatric: Present: A&O x's 3, appropriate affect, intact judgment & insight - Allied health notes Allied health notes reviewed: nursing - Labs CBC & Chem 7: 03/29/20 06:57 03/28/20 18:36 Labs: Abnormal Lab Results - Last 24 Hours (Table) 03/28/20 03/29/20 Range/Units 18:36 06:57 MCV 104.7 H (80.0-100.0) fL Sodium 134 L (137-145) mmol/L BUN 21 H (7-17) mg/dL Creatinine 1.23 H (0.52-1.04) mg/dL Glucose 101 H (74-99) mg/dL Total Protein 5.8 L (6.3-8.2) g/dL Albumin 3.3 L (3.5-5.0) g/dL Assessment and Plan Assessment: hypertensive urgency Migraines Mixed anxiety and depression (1) Hypertensive urgency Narrative/Plan: Continue lisinopril 10 mg by mouth daily Continue Inderal 40 mg by mouth twice a day Cardiology consult for recommendations and treatment plan Current Visit: Yes Status: Acute Code(s): I16.0 - HYPERTENSIVE URGENCY SNOMED Code(s): 370051692 Plan: consultation with cardiology for recommendations and treatment plan regarding hypertensive urgency Continue Inderal 40 mg by mouth twice a day for hypertension and migraine prophylaxis Continue lisinopril 10 mg by mouth daily Continue home medications Continue medical management Hopeful discharge today Time with Patient: Greater than 30
[2020-03-29] MEDS: CITALOPRAM HYDROBROMIDE 20 MG TAB PO SCH (09:25)
[2020-03-29] MEDS: buPROPion XL 150 MG TAB.ER.24H PO SCH (09:25)
[2020-03-29] MEDS: PROPRANOLOL 40 MG TAB PO SCH (09:25)
[2020-03-29] MEDS: lamoTRIgine 100 MG TAB PO SCH (09:25)
[2020-03-29 11:04] VITALS: PULSE 72; TEMP 97.9
--- NOTE | 2020-03-29 15:44 | P.PN ---
Subjective Progress Note Date: 03/29/20 CHIEF COMPLAINT: hypertension HISTORY OF PRESENT ILLNESS: Patient examined this morning at the bedside. She denies chest pain or pressure. She denies shortness of breath. Patient's blood pressure was elevated overnight and she was given a dose of IV hydralazine per internal medicine. Echocardiogram completed reveals ejection fraction 50-55%, mild aortic regurgitation, mild mitral regurgitation, and mild tricuspid regurgitation PHYSICAL EXAM: VITAL SIGNS: Reviewed. GENERAL: Well-developed in no acute distress. HEENT: Head is normocephalic. Pupils are equal, round. Sclerae anicteric. Mucous membranes of the mouth are moist. Neck supple. No JVD or thyromegaly LUNGS: Respirations even and unlabored. Lungs essentially clear to auscultation bilaterally. HEART: Regular rate and rhythm. S1 and S2 heard. EXTREMITIES: Normal range of motion. No clubbing or cyanosis. Peripheral pulses intact. No lower extremity edema ASSESSMENT: Hypertension, uncontrolled Migraines PLAN: Increase lisinopril to 20mg twice a day Continue propranolol Patient is stable for discharge home today from a cardiac standpoint. She is to follow up with Dr. Clement in 2 weeks. Nurse practitioner note has been reviewed by physician. Signing provider agrees with the documented findings, assessment, and plan of care. Objective - Vital Signs Vital signs: Vital Signs Temp 97.9 F 03/29/20 07:45 Pulse 72 03/29/20 07:45 Resp 18 03/29/20 07:45 BP 116/67 03/29/20 07:45 Pulse Ox 97 03/29/20 07:45 Intake & Output 03/28/20 03/29/20 03/29/20 18:59 06:59 18:59 Intake Total 654 125 Output Total 0 Balance 654 125 Weight 84.3 kg Intake: Oral 654 125 Output: Urine 0 Stool 0 Other: Voiding Method Toilet # Voids 0 3 3 # Bowel Movements 0 - Labs CBC & Chem 7: 03/29/20 06:57 03/28/20 18:36 Labs: Abnormal Lab Results - Last 24 Hours (Table) 03/28/20 03/29/20 Range/Units 18:36 06:57 MCV 104.7 H (80.0-100.0) fL Sodium 134 L (137-145) mmol/L BUN 21 H (7-17) mg/dL Creatinine 1.23 H (0.52-1.04) mg/dL Glucose 101 H (74-99) mg/dL Total Protein 5.8 L (6.3-8.2) g/dL Albumin 3.3 L (3.5-5.0) g/dL
--- NOTE | 2020-03-29 17:57 | P.DS ---
Providers Date of admission: 03/27/20 17:13 Expected date of discharge: 03/29/20 Attending physician: Tony Fulton Consults: 03/27/20 17:14 Consult Physician Routine Consulting Provider: Christiano Clement Consult Reason/Comments: Hypertensive urgency Do you want consulting provider notified?: Yes Primary care physician: Tony Fulton - Discharge Diagnosis(es) (1) Hypertensive urgency Hypertensive urgency controlled with IV hydralazine Initiated lisinopril by mouth daily Resume Inderal 80 mg LA by mouth daily Pressure controlled upon discharge Status: Acute Hospital Course: 44-year-old female presented to the emergency department with elevated blood pressure, she recently seen in our office started on Inderal 80 mg extended release. patient did not start medication per medical decisionawaited approval from neurologist for coverage for blood pressure and migraines. Patient was sent from neurologist office for blood pressure 240/130ct of the head and neck was performed no aneurysms, and noted no abnormalities, history of family aneurysms. Patient was initiated with IV hydralazine 10 mg every 6 hours as needed for systolic blood pressure greater than 200. Patient was started on Inderal 40 mg by mouth twice a day, cardiology consult for blood pressure management with recommendation of lisinopril by mouth daily. No neuro deficits or abnormalities noted during stay with hypertensive urgency. Assessment: Hypertension urgency Migraines Mixed anxiety and depression Health Concerns: None noted Pertinent Studies: Echocardiogram Chest x-ray Procedures: None noted Patient Condition at Discharge: Fair Plan - Discharge Summary Discharge Rx Participant: No New Discharge Prescriptions: New Lisinopril [Zestril] 20 mg PO BID #60 tab Propranolol LA [Inderal LA] 80 mg PO DAILY #30 cap Continue buPROPion XL [Wellbutrin XL] 450 mg PO DAILY Citalopram Hydrobromide [Citalopram HBr] 40 mg PO DAILY lamoTRIgine [LaMICtal] 150 mg PO BID Discharge Medication List Citalopram Hydrobromide [Citalopram HBr] 40 mg PO DAILY 03/27/20 [History] buPROPion XL [Wellbutrin XL] 450 mg PO DAILY 03/27/20 [History] lamoTRIgine [LaMICtal] 150 mg PO BID 03/27/20 [History] Lisinopril [Zestril] 20 mg PO BID #60 tab 03/29/20 [Rx] Propranolol LA [Inderal LA] 80 mg PO DAILY #30 cap 03/29/20 [Rx] Follow up Appointment(s)/Referral(s): Tony Fulton MD [Primary Care Provider] - 04/03/20 8:30 am Christiano Clement MD [STAFF PHYSICIAN] - 04/19/20 10:15 am Patient Instructions/Handouts: Heart Healthy Diet (DC) Activity/Diet/Wound Care/Special Instructions: Track blood pressures for two weeks and bring with you for your appointment with cardiology. Discharge Disposition: HOME SELF-CARE
== END 2020-03-29 16:45 | disposition home or self-care (01) | DRG 305 ==
LOC: EC 14:07 → 3SCARD 17:13
PROVIDERS: ADMIT Family Medicine; ATTEND Family Medicine
DX: I16.0 Hypertensive urgency (principal); G43.909 Migraine, unspecified, not intractable, without status migrainosus; I10 Essential (primary) hypertension; F41.8 Other specified anxiety disorders; Z98.84 Bariatric surgery status; Z90.710 Acquired absence of both cervix and uterus; Z79.899 Other long term (current) drug therapy; Z87.891 Personal history of nicotine dependence; Z98.891 History of uterine scar from previous surgery; Z82.49 Family history of ischemic heart disease and other diseases of the circulatory system
CPT/HCPCS: 36415; 70450; 70496; 71046; 80053; 80061; 82088; 82533; 83735; 83835; 83880; 84484; 85025; 85610; 85730; 93005; 93306; 94760; 96374; 96375; 99291

== ENCOUNTER 2020-04-17 13:31 | Inpatient (IN) | payer BC ==
--- NOTE | 2020-04-17 14:58 | ED ---
Dizziness HPI - General Chief Complaint: Dizziness Stated Complaint: Hypertension Time Seen by Provider: 04/17/20 14:58 Source: patient Mode of arrival: ambulatory Limitations: no limitations - History of Present Illness Initial Comments: 44-year-old female with history of hypertension, migraines with aura presenting to emergency Department with a chief complaint of high blood pressure. Patient states she was in emergency department about 2 weeks ago for same chief complaint. Patient states today she had a sudden feeling of lightheadedness lasted for about 90 seconds followed by a pressure in bilateral temporal regions. Patient reports the pressure has since resolved. Now she states there is a pressure across her chest that started about 1330. She denies any associated shortness of breath. Does report diaphoretic episodes a started while she was sleeping last night. She does report nausea but no vomiting. She does report some visual disturbances although she does have an whenever she has migraines. She denies any headaches at this time. Denies one-sided weakness or paresthesias. Patient is currently on propranolol and lisinopril and her baseline systolic blood pressure is 150 [place] she was discharged from the hospital. - Related Data Home Medications Medication Instructions Recorded Confirmed Citalopram Hydrobromide 40 mg PO DAILY 03/27/20 04/17/20 [Citalopram HBr] buPROPion XL [Wellbutrin XL] 450 mg PO DAILY 03/27/20 04/17/20 lamoTRIgine [LaMICtal] 150 mg PO BID 03/27/20 04/17/20 Previous Rx's Medication Instructions Recorded Lisinopril [Zestril] 20 mg PO BID #60 tab 03/29/20 Propranolol LA [Inderal LA] 80 mg PO DAILY #30 cap 03/29/20 Allergies Allergy/AdvReac Type Severity Reaction Status Date / Time No Known Allergies Allergy Verified 04/17/20 16:50 Review of Systems ROS Statement: Those systems with pertinent positive or pertinent negative responses have been documented in the HPI. ROS Other: All systems not noted in ROS Statement are negative. Past Medical History Past Medical History: No Reported History Additional Past Medical History / Comment(s): migraines/mixed anxiety and depression History of Any Multi-Drug Resistant Organisms: None Reported Past Surgical History: Bariatric Surgery, Bladder Surgery, Section, Hysterectomy Additional Past Surgical History / Comment(s): gastric bypass Past Anesthesia/Blood Transfusion Reactions: No Reported Reaction Past Psychological History: Depression Smoking Status: Current some day smoker Past Alcohol Use History: Occasional Past Drug Use History: None Reported - Past Family History Father History Unknown: Yes Mother History Unknown: Yes General Exam Limitations: no limitations General appearance: alert, in no apparent distress Head exam: Present: atraumatic, normocephalic, normal inspection Eye exam: Present: normal appearance, PERRL, EOMI, other (Limited opthalmic exmination reveals no sign of papilledema). Absent: scleral icterus, conjunctival injection, nystagmus Pupils: Present: normal accommodation ENT exam: Present: normal exam, normal oropharynx, mucous membranes moist, TM's normal bilaterally, normal external ear exam Neck exam: Present: normal inspection, full ROM. Absent: tenderness Respiratory exam: Present: normal lung sounds bilaterally. Absent: respiratory distress, wheezes, rales Cardiovascular Exam: Present: regular rate, normal rhythm, normal heart sounds. Absent: systolic murmur, diastolic murmur GI/Abdominal exam: Present: soft. Absent: distended, tenderness Extremities exam: Present: normal inspection, full ROM, normal capillary refill. Absent: tenderness, pedal edema, joint swelling, calf tenderness Back exam: Present: normal inspection, full ROM. Absent: tenderness, CVA tenderness (R), CVA tenderness (L) Neurological exam: Present: alert, oriented X3, normal gait Expanded Patient oriented to: Present: person, place, time Speech: Present: fluid speech Cranial nerves: EOM's Intact: Normal, Nystagmus: Normal, Facial Sensation: Normal Sensory exam: Upper Extremity Light Touch: Normal, Lower Extremity Light Touch: Normal Psychiatric exam: Present: normal affect, normal mood Skin exam: Present: warm, dry, intact, normal color Course Vital Signs 04/17/20 04/17/20 04/17/20 13:46 15:53 16:38 Temperature 98.7 F Pulse Rate 66 64 60 Respiratory 18 18 18 Rate Blood Pressure 189/121 180/126 177/125 O2 Sat by Pulse 98 99 98 Oximetry 04/17/20 18:00 Temperature Pulse Rate 65 Respiratory 18 Rate Blood Pressure 163/103 O2 Sat by Pulse 99 Oximetry EKG Findings - EKG Comments: EKG Findings:: Sinus bradycardia. Ventricular rate 59, RI 134, QRS 92, QTC 435. Medical Decision Making - Medical Decision Making 44-year-old female history of migraines presenting to the emergency department a chief complaint of high blood pressure. Neurological examination is unremarkable. Patient does not have any headaches at this time as she continues to have chest pressure. EKG shows sinus bradycardic. Initial troponins are negative. Patient started 1.25 of Vasotec.. Coags within normal limits. CBC CMP unremarkable. Patient received CT brain angiogram and CT of the brain without contrast with no acute findings and her most recent visit. Patient will be admitted for cardiac observation and serial troponins. Case discussed with Dr. Meredith. Admitting physician is Dr Lomeli cardiology consuted - Lab Data Result diagrams: 04/17/20 15:15 04/17/20 15:15 Lab Results 04/17/20 04/17/20 04/17/20 Range/Units 15:15 15:15 15:15 WBC 5.5 (3.8-10.6) k/uL RBC 4.23 (3.80-5.40) m/uL Hgb 14.9 (11.4-16.0) gm/dL Hct 42.7 (34.0-46.0) % MCV 101.1 H (80.0-100.0) fL MCH 35.2 H (25.0-35.0) pg MCHC 34.8 (31.0-37.0) g/dL RDW 11.7 (11.5-15.5) % Plt Count 259 (150-450) k/uL MPV 7.0 Neutrophils % 59 % Lymphocytes % 27 % Monocytes % 5 % Eosinophils % 7 % Basophils % 1 % Neutrophils # 3.3 (1.3-7.7) k/uL Lymphocytes # 1.5 (1.0-4.8) k/uL Monocytes # 0.3 (0-1.0) k/uL Eosinophils # 0.4 (0-0.7) k/uL Basophils # 0.1 (0-0.2) k/uL PT 9.5 (9.0-12.0) sec INR 0.9 (<1.2) APTT 23.0 (22.0-30.0) sec Sodium 135 L (137-145) mmol/L Potassium 4.4 (3.5-5.1) mmol/L Chloride 104 (98-107) mmol/L Carbon Dioxide 25 (22-30) mmol/L Anion Gap 6 mmol/L BUN 18 H (7-17) mg/dL Creatinine 1.01 (0.52-1.04) mg/dL Est GFR (CKD-EPI)AfAm 77 (>60 ml/min/1.73 sqM) Est GFR (CKD-EPI)NonAf 67 (>60 ml/min/1.73 sqM) Glucose 102 H (74-99) mg/dL Calcium 9.7 (8.4-10.2) mg/dL Magnesium 2.1 (1.6-2.3) mg/dL Total Bilirubin 0.7 (0.2-1.3) mg/dL AST 40 H (14-36) U/L ALT 42 H (4-34) U/L Alkaline Phosphatase 59 (38-126) U/L Troponin I (0.000-0.034) ng/mL Total Protein 7.4 (6.3-8.2) g/dL Albumin 4.4 (3.5-5.0) g/dL 04/17/20 Range/Units 15:15 WBC (3.8-10.6) k/uL RBC (3.80-5.40) m/uL Hgb (11.4-16.0) gm/dL Hct (34.0-46.0) % MCV (80.0-100.0) fL MCH (25.0-35.0) pg MCHC (31.0-37.0) g/dL RDW (11.5-15.5) % Plt Count (150-450) k/uL MPV Neutrophils % % Lymphocytes % % Monocytes % % Eosinophils % % Basophils % % Neutrophils # (1.3-7.7) k/uL Lymphocytes # (1.0-4.8) k/uL Monocytes # (0-1.0) k/uL Eosinophils # (0-0.7) k/uL Basophils # (0-0.2) k/uL PT (9.0-12.0) sec INR (<1.2) APTT (22.0-30.0) sec Sodium (137-145) mmol/L Potassium (3.5-5.1) mmol/L Chloride (98-107) mmol/L Carbon Dioxide (22-30) mmol/L Anion Gap mmol/L BUN (7-17) mg/dL Creatinine (0.52-1.04) mg/dL Est GFR (CKD-EPI)AfAm (>60 ml/min/1.73 sqM) Est GFR (CKD-EPI)NonAf (>60 ml/min/1.73 sqM) Glucose (74-99) mg/dL Calcium (8.4-10.2) mg/dL Magnesium (1.6-2.3) mg/dL Total Bilirubin (0.2-1.3) mg/dL AST (14-36) U/L ALT (4-34) U/L Alkaline Phosphatase (38-126) U/L Troponin I <0.012 (0.000-0.034) ng/mL Total Protein (6.3-8.2) g/dL Albumin (3.5-5.0) g/dL Disposition Clinical Impression: Hypertension, Chest pain Disposition: ADMITTED IP TO THIS [facility] Condition: Good Is patient prescribed a controlled substance at d/c from ED?: No Time of Disposition: 16:57
[2020-04-17 15:28] LABS: Basophils # (A) 0.1 k/uL (0-0.2); Basophils % (A) 1 %; Eosinophils # (A) 0.4 k/uL (0-0.7); Eosinophils % (A) 7 %; HCT 42.7 % (34.0-46.0); HGB 14.9 gm/dL (11.4-16.0); Lymphocytes # (A) 1.5 k/uL (1.0-4.8); Lymphocytes % (A) 27 %; MCH 35.2 pg (25.0-35.0); MCHC 34.8 g/dL (31.0-37.0); MCV 101.1 fL (80.0-100.0); Monocytes # (A) 0.3 k/uL (0-1.0); Monocytes % (A) 5 %; Neutrophils # (A) 3.3 k/uL (1.3-7.7); Neutrophils % (A) 59 %; Platelet Count 259 k/uL (150-450); RBC 4.23 m/uL (3.80-5.40); RDW 11.7 % (11.5-15.5); WBC 5.5 k/uL (3.8-10.6)
[2020-04-17 15:33] LABS: INR 0.9 (<1.2); Prothrombin Time 9.5 sec (9.0-12.0)
[2020-04-17 15:35] LABS: Albumin 4.4 g/dL (3.5-5.0); Calcium 9.7 mg/dL (8.4-10.2); Magnesium 2.1 mg/dL (1.6-2.3); Potassium 4.4 mmol/L (3.5-5.1); Total Bilirubin 0.7 mg/dL (0.2-1.3); Total Protein 7.4 g/dL (6.3-8.2)
[2020-04-17] MEDS ORDERED: ENALAPRILAT 1.25 MG/ML 1 ML VIAL IVP STA (16:14)
[2020-04-17] MEDS ORDERED: NITROGLYCERIN SL TABS 0.4 MG TAB SUBLINGUAL PRN (16:54)
[2020-04-17] MEDS ORDERED: hydrALAZINE HCL 20 MG/ML 1 ML VIAL IVP PRN (17:01)
[2020-04-17 18:17] LABS: Appearance,Urine Clear (Clear); Bilirubin,Urine Negative (Negative); Blood,Urine Negative (Negative); Color,Urine Yellow; Glucose,Urine (UA) Negative (Negative); Ketones,Urine Negative (Negative); Leukocyte Esterase,Urine Negative (Negative); Nitrite,Urine Negative (Negative); Protein,Urine Negative (Negative); Specific Gravity,Urine 1.018 (1.001-1.035); Urobilinogen,Urine <2.0 mg/dL (<2.0)
[2020-04-17] MEDS ORDERED: cloNIDine HCL 0.1 MG TAB PO PRN (19:38)
[2020-04-17] MEDS: lamoTRIgine 100 MG TAB PO SCH (20:24)
[2020-04-17] MEDS: lisinopriL 20 MG TAB PO SCH (20:24)
--- NOTE | 2020-04-17 21:11 | HP ---
HISTORY AND PHYSICAL DATE OF SERVICE: 04/17/2020 CHIEF COMPLAINT: Dizziness and hypertension. HISTORY OF PRESENT ILLNESS: This 44-year-old woman with a past medical history of multiple medical problems including history of hypertension, history of migraines, history of bariatric surgery, history of bladder surgery, section, hysterectomy, history of anxiety, depression, being followed by Dr. Tony Fulton in the outpatient setting was previously admitted with hypertension as well as multiple symptomatology. Multiple evaluations including urine and serum metanephrines and serum cortisol within normal limits. Aldosterone was also normal at that time. Currently the patient had again similar symptoms include dizziness and blood pressure is extremely elevated. Last time it was more than 250. At this time the initial blood pressure recorded in the ER was 180/121. Patient was admitted for further evaluation. The patient had multiple abnormalities also. There is no history of fever, rigors. No history of headache, loss of consciousness or seizures. PAST MEDICAL HISTORY: Hypertension, history of migraines, anxiety, bariatric surgery, bladder surgery, hysterectomy, anxiety, depression. MEDICATIONS: Medications prior to admission include: Lamictal 150 mg p.o. b.i.d., Wellbutrin 450 mg daily, Inderal 80 mg daily, Zestril 20 mg daily, Celexa 40 mg daily. ALLERGIES: None. FAMILY HISTORY: No history of heart disease or strokes in the family. SOCIAL HISTORY: History of smoking. Occasional alcohol intake. REVIEW OF SYSTEMS: ENT: No diminished vision. No diminished hearing. Cardio system: No angina. Respiration: No cough. No hemoptysis. GI: No nausea or vomiting. : No dysuria. Nervous System: No numbness or weakness. MUSCULOSKELETAL as mentioned earlier. Hematology/Oncology: No history of anemia. Endocrine: As mentioned earlier. CONSTITUTIONAL: As mentioned earlier. DERMATOLOGY: Negative. RHEUMATOLOGY negative. PSYCHIATRY as mentioned earlier. PHYSICAL EXAM: Patient is alert, oriented x3. The pulse is 65. Blood pressure 160/103, respiration 18, temperature 98.7, pulse ox 98% on room air. HEENT: Conjunctivae normal. NECK: No JVD. CARDIOVASCULAR: S1, S2. Respirations: Breath sounds diminished in the bases. A few scattered rhonchi and crackles. ABDOMEN: Soft, nontender. No mass. LEGS: No edema. No swelling. NERVOUS SYSTEM: Higher functions as mentioned earlier. Moves all four limbs. No focal motor or sensory deficits. Lymphatics: No lymph nodes palpable in the neck, axillae or groin. Skin: No ulcer, no rash and no bleeding. JOINTS: No active deforming arthropathy. LABS: WBC 5.5, and MCV 101. Sodium 135, glucose 102, AST is 14, ALT is 42. ASSESSMENT: 1. Accelerated uncontrolled hypertension with hypertensive urgency. 2. Increased MCV. 3. Hyponatremia. 4. Increased AST, ALT with mild hepatitis. 5. Hypertension. 6. History of migraine. 7. Anxiety, depression. 8. History of bariatric surgery. 9. History of hysterectomy. 10.History of occasional nicotine dependence. 11.Obesity with body mass of 30.9. RECOMMENDATIONS AND DISCUSSION: This 44-year-old woman who presented with multiple complex medical issues, at this time, I recommend to continue current medication. Patient started on lisinopril. I would also recommend add clonidine to the current regimen. Otherwise, repeat labs. I would also recommend serum and urine metanephrines and urine catecholamines and as well as ACTH also. Otherwise CT scan of the abdomen and pelvis and chest and neck is also ordered with contrast to rule out the possibility of any multiple endocrine neoplasia. Prognosis guarded because of multiple complex medical issues. A copy of dictation being forwarded to Dr. Fulton, who is the primary physician. MMANGL / GUDELIAN: [id number] / MIGEL
[2020-04-17] MEDS: IOPAMIDOL CONTRAST (ORAL USE) VIAL PO PRN ×2 (21:40→22:34)
[2020-04-17] MEDS ORDERED: cloNIDine HCL 0.1 MG TAB PO SCH (22:00)
--- NOTE | 2020-04-17 23:44 | CT ---
EXAMINATION TYPE: CT abdomen pelvis w con DATE OF EXAM: 04/17/2020 COMPARISON: None HISTORY: accelerated hypertension CT DLP: 2095.8 mGycm Automated exposure control for dose reduction was used. CONTRAST: Performed with IV Contrast, patient injected with 100 mL of Isovue 300. Lung bases are clear. There is no pleural effusion. Heart size is normal. There is no pericardial eff usion. There is hiatal hernia. There are surgical clips on the stomach. Liver and gallbladder appear intact. Bile ducts are not dilated. Spleen is intact. There is no pancreatic mass. There is no adrenal mass. Kidneys show satisfactory contrast opacification. There is no hydronephrosi s. Ureters are not dilated. There is no retroperitoneal adenopathy. Delayed images show normal renal excretion. Bladder distends smoothly. There is no inguinal hernia. There is no free fluid in the pelvis. There is no sign of a pelvic mass. There is normal contrast opa cification of the small bowel. There is no sign of a bowel obstruction. Appendix is posterior and jeanie ears normal. There is no mesenteric edema. There is no ascites or free air. There is no bowel obstruction. Lumbar vertebra have normal spacing and alignment. Posterior elements are intact. There is no compression fr acture. Bony pelvis is intact. IMPRESSION: Previous gastric bariatric surgery. No sign of acute abdomen and pelvis. Hiatal hernia.
--- NOTE | 2020-04-17 23:53 | CT ---
EXAMINATION TYPE: CT neck chest w/wo con DATE OF EXAM: 04/17/2020 COMPARISON: None HISTORY: accelerated hypertension CT DLP: 767.8 mGycm Automated exposure control for dose reduction was used. CONTRAST: Performed with IV Contrast, patient injected with 100 mL of Isovue 300. FINDINGS: Images were obtained from the level of the top of the orbits to the diaphragm with and without IV con trast. The lungs are clear of infiltrate. There is no pleural effusion. Heart size is normal. There is no pe ricardial effusion. There is no mediastinal adenopathy. Ascending aorta measures 3.5 cm. There is no dissection. There are no hilar masses. There is no evidence of a pulmonary mass. Thyroid gland is symmetric. There is normal contrast opacification of the carotid arteries and jugula r veins. There is normal contrast opacification of the vertebral arteries. Parotid glands are symmetr ic. Submandibular salivary glands are symmetric. There is no cervical adenopathy. Cervical and thoracic vertebra have normal alignment. There is mild spurring of the endplates at C5-6 and C6-7. There is moderate posterior osteophyte formation at C6-7 with 6 mm bony spinal stenosis. T here is hypertrophic mild cervical facet arthropathy. Epiglottis is normal. Trachea appears normal. Tonsils and adenoids are within normal limits. There is no evidence of pharyngeal mass. The tongue appears normal. Prevertebral soft tissues are not enlarge d. Sphenoid bone appears normal. There is no evidence of carotid or vertebral artery aneurysm or dissection. There is arterial flow in the vertebrobasilar artery system. IMPRESSION: ASCENDING AORTA IS SOMEWHAT PROMINENT MEASURING 3.5 CM WITHOUT DISSECTION. NO EVIDENCE OF ANY SIGNIF ICANT LUNG DISEASE. NO SUSPICIOUS PULMONARY MASS. THERE IS A MILD RELATIVE SPINAL STENOSIS AT C6-7 OF 6 MM. CERVICAL SPONDYLOTIC CHANGES ABOVE. NO EVIDENCE OF A NECK MASS.
[2020-04-18] MEDS ORDERED: AMINOPHYLLINE 500 MG/20 ML VIAL IV PRN (07:53)
[2020-04-18] MEDS ORDERED: CAFFEINE CITRATE 60 MG/3 ML VIAL IV PRN (07:53)
[2020-04-18] MEDS ORDERED: REGADENOSON 0.4 MG/5 ML SYRINGE IV PRN (07:53)
[2020-04-18 08:48] LABS: Albumin 3.9 g/dL (3.5-5.0); Potassium 4.3 mmol/L (3.5-5.1); Total Bilirubin 0.8 mg/dL (0.2-1.3); Total Protein 6.6 g/dL (6.3-8.2)
[2020-04-18 08:49] LABS: Cholesterol 160 mg/dL (<200); HDL Cholesterol 61 mg/dL (40-60); LDL Cholesterol,Calculated 62 mg/dL (0-99); Triglycerides 185 mg/dL (<150)
[2020-04-18] MEDS ORDERED: cloNIDine HCL 0.1 MG TAB PO SCH (09:00)
[2020-04-18] MEDS ORDERED: ASPIRIN 81 MG PO SCH (09:00)
[2020-04-18] MEDS ORDERED: ASPIRIN 325 MG TAB PO SCH (09:00)
--- NOTE | 2020-04-18 09:42 | CONS ---
CONSULTATION Mrs. Woods is a 44-year-old female with prior history of gastric bypass about 6 years ago, history of occasional smoking, who was admitted to the hospital in mid March of last year with elevated blood pressure. At that time, she underwent an echocardiogram that revealed a preserved left ventricular size and systolic function. The patient has been monitoring her blood pressure at home and it remains elevated. Yesterday she came into the emergency room because she noted that her blood pressure was elevated. She was getting anxious, had some heaviness in the chest, mild dizziness, no syncope. She has no peripheral edema. She is average in exercise tolerance. There is no history of PND. No orthopnea. The patient has not been monitoring her blood pressure prior to last admission, so she is unsure if it was elevated in the past. She had evaluation of her diastolic level, cortisone and plasma free metanephrine and they were within normal range. There was no evidence of end-organ damage. The patient denies any palpitation. She is reasonably compliant with a low salt intake because of her gastric bypass. She has no history of malignant arrhythmia in the past. When she was admitted, her blood pressure was 189/121. Her medications at home include lisinopril 20 mg twice a day, propranolol LA 80 mg daily, Wellbutrin, Lamictal and Zyloprim. REVIEW OF SYSTEMS: RESPIRATORY SYSTEM: She has no recent wheezing. No cough. No history of obstructive lung disease. GI SYSTEM: No recent GI bleeding. No peptic ulcer disease. SYSTEM: No dysuria or hematuria. NERVOUS SYSTEM: No history of stroke or seizure. PHYSICAL EXAMINATION: A 44-year-old female, alert, oriented, in no apparent distress. Blood pressure 115/70 with the heart rate in the 60s. HEAD: Normocephalic. EYES: Sclerae anicteric. NECK: Good carotid upstroke. No bruit. No jugular venous distention. LUNGS: Clear to auscultation. HEART: Regular rate and rhythm. S1, S2. No S3. No S4. No murmur or rub. ABDOMEN: Soft, nontender. Positive bowel sounds. No organomegaly. EXTREMITIES: No edema. Intact distal pulses. LAB DATA: Lab data revealed a hemoglobin of 14.9, platelet count of 259. BUN and creatinine of 18 and 1.01. Troponin less than 0.012. AST of 40, ALT of 42. She had an abdominal CT that showed no acute abdominal abnormalities. She is status post gastric bypass. She had a neck CT that revealed a mild prominence of the ascending aorta with no dissection and mild relative spinal stenosis. Her EKG revealed sinus mechanism, rate of 59, normal axis, minor nonspecific ST-T wave changes, poor R-wave progression. IMPRESSION: 1. Hypertension, elevated, newly noted in mid March, could have been lasting longer than that. 2. Chest discomfort, has some atypical features for ischemic heart disease with no evidence of acute coronary syndrome. 3. Prior history of smoking. 4. History of gastric bypass. RECOMMENDATION: I will cut down the dose of the clonidine that was started yesterday and I will start her on hydrochlorothiazide 25 mg daily. I will obtain a myocardial perfusion imaging to rule out any ischemic event. If there is no evidence of ischemia, then we will continue present therapy. If needed, amlodipine can be added to her regimen and depending on her progress, further recommendation will be made. Thank you for this consult. Will follow with you. MMANGL / IJN: [id number] /
[2020-04-18 10:03] LABS: Basophils # (A) 0.1 k/uL (0-0.2); Basophils % (A) 1 %; Eosinophils # (A) 0.3 k/uL (0-0.7); Eosinophils % (A) 8 %; HGB 13.5 gm/dL (11.4-16.0); Lymphocytes # (A) 1.6 k/uL (1.0-4.8); Lymphocytes % (A) 41 %; MCH 35.3 pg (25.0-35.0); MCHC 34.5 g/dL (31.0-37.0); MCV 102.3 fL (80.0-100.0); Mean Platelet Volume 7.1; Monocytes # (A) 0.2 k/uL (0-1.0); Monocytes % (A) 6 %; Neutrophils # (A) 1.7 k/uL (1.3-7.7); Neutrophils % (A) 43 %; Platelet Count 191 k/uL (150-450); RBC 3.81 m/uL (3.80-5.40); WBC 3.9 k/uL (3.8-10.6)
--- NOTE | 2020-04-18 11:12 | EST ---
EXERCISE STRESS AGE: 44 SEX: F HT: 5'4" WT: 184 lbs. PROTOCOL: Lexiscan STAGE: N/A DURATION OF EXERCISE: N/A HEART RATE REST: 56 BLOOD PRESSURE REST: 108/83 MAXIMUM HEART RATE ACHIEVED: 82 MAXIMUM BLOOD PRESSURE: 128/91 85% MPHR: 148 100% MPHR: 174 METS: N/A INDICATION: Chest pain. CLINICAL INFORMATION: Baseline EKG shows sinus rhythm, normal axis, normal intervals. Patient was given intravenous Lexiscan as per protocol. Did not have chest pain or diagnostic ST-segment depression. CONCLUSIONS: 1. Negative stress test by EKG criteria. 2. Cardiolite portion of the stress test will be reported separately. MMODL / IJN: [id number] /
[2020-04-18] MEDS: lisinopriL 20 MG TAB PO SCH ×2 (12:42→20:23)
[2020-04-18] MEDS: CITALOPRAM HYDROBROMIDE 20 MG TAB PO SCH (12:50)
[2020-04-18] MEDS: buPROPion XL 300 MG TAB.ER.24H PO SCH (12:50)
[2020-04-18] MEDS: PROPRANOLOL LA 80 MG CAP.SA.24H PO SCH (12:50)
[2020-04-18] MEDS: hydroCHLOROthiazide 25 MG TAB PO SCH (12:50)
[2020-04-18] MEDS: lamoTRIgine 100 MG TAB PO SCH ×2 (12:51→20:23)
--- NOTE | 2020-04-18 14:10 | NM ---
EXAMINATION TYPE: NM stress lexiscan cardiolite DATE OF EXAM: 04/18/2020 COMPARISON: NONE HISTORY: Chest pain TECHNIQUE: After the intravenous administration of 9.9 mCi Tc 99m Sestamibi - Cardiolite resting SPE CT images acquired 45 minutes post injection. The patient received 0.4mg Lexiscan, 25.5 mCi Tc 99m Sestamibi - Stress images obtained [address] injection FINDINGS: There is diminished radiotracer accumulation within the inferior wall on the stress images compared t o the resting images. This appears to be reversible with more normal radiotracer on the resting image s. Polar maps correlate with the SPECT imaging Wall motion is normal. Ejection fraction of 66% is normal. IMPRESSION: Clinical consideration for stress-induced ischemic change along the inferior wall is recommended.
[2020-04-18] MEDS ORDERED: ALPRAZolam 0.25 MG TAB PO PRN (14:30)
[2020-04-18] MEDS ORDERED: SODIUM CHLORIDE 0.9% 1,000 ML in EMPTY BAG 1 BAG IV ONE (14:30)
[2020-04-18] MEDS ORDERED: ALPRAZolam 0.5 MG TAB PO PRN (14:30)
--- NOTE | 2020-04-18 15:28 | P.PN ---
Progress Note - Text Stress test results discussed with the patient. We recommend proceeding with cardiac catheterization. I have discussed the risks, benefits and alternative therapies for the above-mentioned procedure and for both sedation/analgesia as well as necessary blood product administration, if indicated, as they pertain to this patient. The patient has indicated understanding and acceptance of the risks and procedures discussed. Questions have been answered appropriately and she is agreeable to move forward with the above stated procedure.
--- NOTE | 2020-04-18 18:32 | P.PN ---
Subjective Progress Note Date: 04/18/20 Principal diagnosis: Dizziness Hypertension This pleasant 44 year old female is resting comfortably in bed, she states she had feelings of not feeling well at work yesterday and presented to the ER with an elevated blood pressure, she stated she still was having elevated blood pr essures at home after recent hospitalization for hypertension. She states the plaster pattern caster Dr. Forbes had just left and plans for today is to have a stress test. The stress test did come back positive as reversible ischemia she will have a cardiac catheterization in the morning blood pressure meds have been adjusted by cardiology and vitals have been stable including systolic blood pressure readings in the low 100s. She remains in no acute distress at this time, and is aware of cardiac catheterization for tomorrow Objective - Vital Signs Vital signs: Vital Signs Temp 98.2 F 04/18/20 15:39 Pulse 68 04/18/20 15:39 Resp 16 04/18/20 15:39 BP 109/70 04/18/20 15:39 Pulse Ox 98 04/18/20 15:39 Intake & Output 04/17/20 04/18/20 04/18/20 18:59 06:59 18:59 Intake Total 540 Balance 540 Weight 81.647 kg 83.7 kg 83.7 kg Intake: Oral 540 Other: Voiding Method Toilet # Voids 1 # Bowel Movements 0 - Constitutional General appearance: Present: average body habitus, cooperative, mild distress - EENT Eyes: Present: dentition normal Ears: bilateral: normal - Neck Neck: Present: normal ROM - Respiratory Respiratory: bilateral: CTA - Cardiovascular Rhythm: regular Heart sounds: normal: S1, S2 - Gastrointestinal General gastrointestinal: Present: normal bowel sounds, soft - Psychiatric Psychiatric: Present: A&O x's 3, appropriate affect, intact judgment & insight - Labs CBC & Chem 7: 04/18/20 08:02 04/18/20 08:02 Labs: Abnormal Lab Results - Last 24 Hours (Table) 04/18/20 04/18/20 04/18/20 Range/Units 08:02 08:02 08:02 MCV 102.3 H (80.0-100.0) fL MCH 35.3 H (25.0-35.0) pg Sodium 134 L (137-145) mmol/L BUN 20 H (7-17) mg/dL ALT 40 H (4-34) U/L Triglycerides 185 H (<150) mg/dL HDL Cholesterol 61 H (40-60) mg/dL - Imaging and Cardiology CT scan - abdomen: report reviewed Assessment and Plan Assessment: Accelerated uncontrolled hypertension with hypertensive urgency Increased mean corpuscle volume Hyponatremia Increased AST ALT with mild hepatitis Hypertension History of migraine History of anxiety History of depression History of bariatric surgery History of hysterectomy History of occasional nicotine dependence Positive stress test for stress-induced ischemia change along the inferior wall Obesity with body mass of 31.7 (1) Hypertension Narrative/Plan: Cardiology consultation continued Continue anti-hypertensive medications as recommended by cardiology Monitor for effectiveness and/or side effects of medication Current Visit: Yes Status: Acute Code(s): I10 - ESSENTIAL (PRIMARY) HYPERTENSION SNOMED Code(s): 79773926 Plan: Continue current medications as prescribed Continue cardiology consult and recommendations
[2020-04-19 04:45] VITALS: RESP 18
[2020-04-19] MEDS: PROPRANOLOL LA 80 MG CAP.SA.24H PO SCH (05:56)
[2020-04-19] MEDS: buPROPion XL 300 MG TAB.ER.24H PO SCH (05:56)
[2020-04-19] MEDS: lamoTRIgine 100 MG TAB PO SCH (05:56)
[2020-04-19] MEDS: lisinopriL 20 MG TAB PO SCH (05:57)
[2020-04-19] MEDS: CITALOPRAM HYDROBROMIDE 20 MG TAB PO SCH (05:57)
[2020-04-19 05:58] LABS: Glucose,Whole Blood 114 mg/dL (75-99)
[2020-04-19] MEDS ORDERED: ASPIRIN 325 MG TAB PO ONE (06:00)
[2020-04-19] MEDS ORDERED: HEPARIN SODIUM,PORCINE 10,000 UNIT in SODIUM CHLORIDE 0.9% 1,000 ML IRRIGATION PRN (07:00)
[2020-04-19] MEDS ORDERED: HEPARIN SODIUM,PORCINE 2,500 UNIT in SODIUM CHLORIDE 0.9% 250 ML IRRIGATION PRN (07:00)
--- NOTE | 2020-04-19 07:33 | P.PN ---
Subjective Progress Note Date: 04/19/20 Principal diagnosis: Dizziness Hypertension This pleasant 44 year old female is resting comfortably in bed, her stress test did come back positive as reversible ischemia she will have a cardiac catheterization this morning, blood pressure meds have been adjusted by cardiology and vitals have been stable including systolic blood pressure readings in the low 100s. She remains in no acute distress at this time Objective - Vital Signs Vital signs: Vital Signs Temp 97.9 F 04/19/20 05:55 Pulse 59 L 04/19/20 05:55 Resp 18 04/19/20 05:55 BP 101/60 04/19/20 05:55 Pulse Ox 98 04/19/20 05:55 Intake & Output 04/18/20 04/19/20 04/19/20 18:59 06:59 18:59 Intake Total 1320 540 Balance 1320 540 Weight 83.7 kg 83 kg Intake: Oral 1320 540 Other: # Bowel Movements 0 - Constitutional General appearance: Present: average body habitus, cooperative, mild distress - EENT Ears: bilateral: normal - Neck Neck: Present: normal ROM - Respiratory Respiratory: bilateral: CTA - Cardiovascular Rhythm: regular - Gastrointestinal General gastrointestinal: Present: normal bowel sounds, soft - Psychiatric Psychiatric: Present: A&O x's 3, appropriate affect, intact judgment & insight - Labs CBC & Chem 7: 04/18/20 08:02 04/18/20 08:02 Labs: Abnormal Lab Results - Last 24 Hours (Table) 04/18/20 04/18/20 04/18/20 Range/Units 08:02 08:02 08:02 MCV 102.3 H (80.0-100.0) fL MCH 35.3 H (25.0-35.0) pg Sodium 134 L (137-145) mmol/L BUN 20 H (7-17) mg/dL POC Glucose (mg/dL) (75-99) mg/dL ALT 40 H (4-34) U/L Triglycerides 185 H (<150) mg/dL HDL Cholesterol 61 H (40-60) mg/dL 04/19/20 Range/Units 05:57 MCV (80.0-100.0) fL MCH (25.0-35.0) pg Sodium (137-145) mmol/L BUN (7-17) mg/dL POC Glucose (mg/dL) 114 H (75-99) mg/dL ALT (4-34) U/L Triglycerides (<150) mg/dL HDL Cholesterol (40-60) mg/dL Assessment and Plan Assessment: Accelerated uncontrolled hypertension with hypertensive urgency Increased mean corpuscle volume Hyponatremia Increased AST ALT with mild hepatitis Hypertension History of migraine History of anxiety History of depression History of bariatric surgery History of hysterectomy History of occasional nicotine dependence Positive stress test for stress-induced ischemia change along the inferior wall Obesity with body mass of 31.7 (1) Hypertension Current Visit: Yes Status: Acute Code(s): I10 - ESSENTIAL (PRIMARY) HYPERTENSION SNOMED Code(s): 79797156 Plan: Continue current medications as prescribed Plan for cardiac catheterization today Continue cardiology consult and recommendations
[2020-04-19 08:24] LABS: Basophils % (A) 1 %; Eosinophils # (A) 0.3 k/uL (0-0.7); Eosinophils % (A) 8 %; HCT 37.5 % (34.0-46.0); HGB 13.1 gm/dL (11.4-16.0); Lymphocytes # (A) 1.5 k/uL (1.0-4.8); Lymphocytes % (A) 36 %; MCH 35.7 pg (25.0-35.0); MCV 102.2 fL (80.0-100.0); Mean Platelet Volume 7.1; Monocytes # (A) 0.3 k/uL (0-1.0); Monocytes % (A) 6 %; Neutrophils % (A) 49 %; Platelet Count 193 k/uL (150-450); RBC 3.67 m/uL (3.80-5.40); RDW 11.8 % (11.5-15.5); WBC 4.1 k/uL (3.8-10.6)
[2020-04-19 08:36] LABS: Calcium 9.1 mg/dL (8.4-10.2); Potassium 4.8 mmol/L (3.5-5.1)
[2020-04-19 09:20] VITALS: TEMP 98.2
[2020-04-19] MEDS ORDERED: VERAPAMIL 2.5 MG/ML 2 ML AMP ONE (09:31)
[2020-04-19] MEDS ORDERED: LIDOCAINE 1% INJ 10MG/ML (20 ML MDV) ONE (09:31)
[2020-04-19] MEDS ORDERED: HEPARIN SODIUM 1,000 UN/ML (10ML VL) ONE (09:50)
[2020-04-19] MEDS ORDERED: fentaNYL (PF) 50 MCG/ML 2 ML AMP ONE (09:50)
[2020-04-19] MEDS ORDERED: IV FLUID CONTINUATION 500 ML IV ONE (10:03)
[2020-04-19] MEDS ORDERED: fentaNYL (PF) 50 MCG/ML 2 ML AMP IVP ONE (10:06)
[2020-04-19] MEDS ORDERED: LIDOCAINE 1% INJ 10MG/ML (20 ML MDV) SQ ONE (10:09)
[2020-04-19] MEDS: MIDAZOLAM 2 MG/2 ML VIAL IVP ONE ×2 (10:11→10:17)
[2020-04-19] MEDS: VERAPAMIL SYRINGE (5 MG/10 ML) INTRAARTER ONE ×2 (10:11→10:17)
[2020-04-19] MEDS ORDERED: HEPARIN SODIUM 1,000 UN/ML (10ML VL) IV ONE (10:21)
[2020-04-19] MEDS ORDERED: IOPAMIDOL-370 125ML BTL INJ ONE (10:21)
[2020-04-19] MEDS: hydroCHLOROthiazide 25 MG TAB PO SCH (10:33)
[2020-04-19] MEDS ORDERED: RX INFO: IV CONTRAST WAS GIVEN 1 EACH MISC MISCELLANE PRN (10:34)
[2020-04-19] MEDS ORDERED: SODIUM CHLORIDE 0.9% 1,000 ML IV SCH (10:45)
--- NOTE | 2020-04-19 11:31 | CC ---
CARDIAC CATHETERIZATION REPORT Mrs. Woods is a 44-year-old female with recently diagnosed hypertension, who presented with symptoms of dizziness, palpitation and chest discomfort. She underwent a myocardial perfusion imaging that revealed evidence of inducible ischemia involving the inferior wall. In view of that, recommendation was made regarding cardiac catheterization. The procedure as well as the risks and the complications were discussed with the patient who is in full understanding and agreement. PROCEDURE: Patient was brought to mobile home laborer in a fasting semi-sedated state after receiving fentanyl and Benadryl achieving moderate conscious sedated state. Using Xylocaine anesthesia and Seldinger technique, a 6-[place] sheath was introduced in the right radial artery. Selective right and left coronary angiography were performed using 5- [place] 3.5 bend right and left Isidoro catheter. Multiple views of the coronary artery including hemiaxial views were obtained. Following that 5-[place] tight pigtail catheter was introduced in the left ventricle and left ventricular end-diastolic pressure was calculated. Following that catheter and sheaths were removed. Hemostasis was obtained with deployment of a TR band. There was no immediate complication. The patient was returned to her room in stable condition. Of note, the patient received 4500 units of intravenous heparin as well as intra-arterial verapamil. FINDINGS: LEFT MAIN: This is a large-sized vessel trifurcating left circumflex, left anterior descending artery and ramus intermedius. Left main coronary artery has no evidence of high-grade stenosis. LEFT ANTERIOR DESCENDING ARTERY: This is a large-sized vessel reaching to the apex giving rise to 2 diagonal branches. The first one is large in caliber. The left anterior descending artery as well as branches have no evidence of obstructive coronary artery disease. LEFT CIRCUMFLEX: This is a nondominant vessel giving rise to one obtuse marginal branch of moderate caliber. The left circumflex as well as branches have no evidence of obstructive coronary artery disease. RAMUS INTERMEDIUS: This is a moderately-sized vessel reaching to the apical lateral wall and has no evidence of obstructive coronary artery disease. RIGHT CORONARY ARTERY: This is a large dominant vessel bifurcating distally PDA and posterolateral segment and branches. The right PDA reaches to the inferoapical wall. The right coronary artery proximally has a 10% plaque. The rest of the vessel has no high-grade stenosis. LEFT VENTRICULOGRAM: Left ventriculogram was not performed. HEMODYNAMICS: There was no gradient across the aortic valve. The ventricular end-diastolic pressure was 8-10 mmHg. CONCLUSION: 1. Mild plaque in the proximal right coronary artery. 2. Normal left coronary system. RECOMMENDATION: In view of finding anatomy, I recommend continue medical therapy with aggressive coronary risk modifications that have been initiated. Those findings and recommendation were discussed with the patient and her family and they are in full understanding and agreement. Duration of sedation is 18 minutes. MMKIRK / GUDELIAN: [id number] /
--- NOTE | 2020-04-19 11:34 | LTR ---
April 19, 2020 Re: Omar Contreraschris Dear Dr. Fulton: I had the opportunity to perform cardiac catheterization on Mrs. Woods at [facility] on the 19 of April and a full copy of the procedure note will be forwarded to you. In brief, she was found to have mild plaque in the proximal LAD and based on those findings I recommend continue medical therapy with aggressive coronary risk modifications that have been initiated. Thank you again for allowing me the opportunity to participate in her care. Please feel free to call for any questions. Sincerely yours, Esperanza Forbes MD MMANGL / GUDELIAN: [id number] /
[2020-04-19 11:47] VITALS: PULSE 69
[2020-04-19 13:14] VITALS: BP 105/68
[2020-04-19] MEDS ORDERED: INFLUENZA VACCINE (6 MOS+) 60 MCG/0.5 ML SYRINGE IM ONE (14:43)
--- NOTE | 2020-04-19 19:08 | P.DS ---
Providers Date of admission: 04/19/20 08:56 Expected date of discharge: 04/19/20 Attending physician: Tony Fulton Consults: 04/17/20 16:29 Consult Physician Urgent Consulting Provider: Christiano Clement Consult Reason/Comments: cp, htn Do you want consulting provider notified?: Yes Primary care physician: Tony Fulton - Discharge Diagnosis(es) (1) Hypertension Antihypertensive medications for goal of stable blood pressure < 150/90 Cardiology follow-up Primary care follow-up to monitor blood pressure readings Status: Acute Hospital Course: Patient was admitted to the hospital for a cardiac workup due to hypertensive emergency dizziness and chest heaviness, cardiology was consulted, she continuous telemetry monitoring, antihypertensive medication adjustments made stabilizing her blood pressure. She had a positive stress test and had a cardiac catheterization which showed mild plaque in the proximal right coronary artery with a normal left coronary system. Cardiology recommendations continue medical therapy with aggressive coronary risk modification cardiology cleared for discharge home with follow-up visit. She is medically stable for discharge home with a follow-up with primary care in addition to cardiology per recommendation Assessment: Accelerated uncontrolled hypertension with hypertensive urgency Increased mean corpuscle volume Hyponatremia Increased AST ALT with mild hepatitis Hypertension History of migraine History of anxiety History of depression History of bariatric surgery History of hysterectomy History of occasional nicotine dependence Positive stress test for stress-induced ischemia change along the inferior wall Catheterization with mild plaque in the proximal right coronary artery and normal left coronary system Obesity with body mass of 31.7 Health Concerns: Complexity of antihypertensive regimen Pertinent Studies: Positive stress test Procedures: Catheterization with mild plaque in the proximal right coronary artery normal left coronary system Patient Condition at Discharge: Good Plan - Discharge Summary Discharge Rx Participant: Yes New Discharge Prescriptions: New buPROPion XL [Wellbutrin XL] 300 mg PO DAILY #30 tab.er.24h Continue Citalopram Hydrobromide [Citalopram HBr] 40 mg PO DAILY lamoTRIgine [LaMICtal] 150 mg PO BID Lisinopril [Zestril] 20 mg PO BID #60 tab Propranolol LA [Inderal LA] 80 mg PO DAILY #30 cap Discontinued buPROPion XL [Wellbutrin XL] 450 mg PO DAILY Discharge Medication List Citalopram Hydrobromide [Citalopram HBr] 40 mg PO DAILY 03/27/20 [History] lamoTRIgine [LaMICtal] 150 mg PO BID 03/27/20 [History] Lisinopril [Zestril] 20 mg PO BID #60 tab 03/29/20 [Rx] Propranolol LA [Inderal LA] 80 mg PO DAILY #30 cap 03/29/20 [Rx] buPROPion XL [Wellbutrin XL] 300 mg PO DAILY #30 tab.er.24h 04/19/20 [Rx] Follow up Appointment(s)/Referral(s): Tony Fulton MD [Primary Care Provider] - 04/21/20 11:00 am Christiano Clement MD [STAFF PHYSICIAN] - 1 Week (Office will call patient to schedule follow up appointment.) Patient Instructions/Handouts: After Radial Heart Catheterization (GEN) Discharge Disposition: HOME SELF-CARE
[2020-04-20] MEDS ORDERED: ASPIRIN 81 MG PO SCH (09:00)
[2020-04-29 16:37] LABS: Metanephrine, Free 28 pg/mL (< OR = 57); Normetanephrine, Free 98 pg/mL (< OR = 148); Total, Free (MN + NMN) 126 pg/mL (< OR = 205)
== END 2020-04-19 16:15 | disposition home or self-care (01) | DRG 287 ==
LOC: EC 13:31 → 3SCARD 16:29 → OBSVTOIN 04-19 08:56
PROVIDERS: ADMIT Family Medicine; ATTEND Family Medicine
PROC: 3E0234Z Introduction of Serum, Toxoid and Vaccine into Muscle, Percutaneous Approach (ICD-10-PCS; principal; 2020-04-19 07:30)
PROC: 4A023N7 Measurement of Cardiac Sampling and Pressure, Left Heart, Percutaneous Approach (ICD-10-PCS; principal; 2020-04-19 07:30)
PROC: B2111ZZ Fluoroscopy of Multiple Coronary Arteries using Low Osmolar Contrast (ICD-10-PCS; principal; 2020-04-19 07:30)
DX: I16.0 Hypertensive urgency (principal); E87.1 Hypo-osmolality and hyponatremia; F17.210 Nicotine dependence, cigarettes, uncomplicated; E66.9 Obesity, unspecified; F32.9 Major depressive disorder, single episode, unspecified; F41.9 Anxiety disorder, unspecified; G43.909 Migraine, unspecified, not intractable, without status migrainosus; I10 Essential (primary) hypertension; I25.10 Atherosclerotic heart disease of native coronary artery without angina pectoris; K75.9 Inflammatory liver disease, unspecified; Z79.899 Other long term (current) drug therapy; Z90.710 Acquired absence of both cervix and uterus; Z98.84 Bariatric surgery status; Z68.30 Body mass index [BMI] 30.0-30.9, adult; Z23 Encounter for immunization
CPT/HCPCS: 36415; 70492; 71270; 74177; 78452; 80048; 80053; 80061; 81003; 82024; 83735; 83835; 84484; 85025; 85610; 85730; 90686; 93005; 93017; 93458; 96374; 99284

== ENCOUNTER → 2020-07-20 | Outpatient (CLI) | payer BC ==
--- NOTE | 2020-07-20 14:58 | CONS ---
CONSULTATION DATE OF SERVICE: 07/20/2020 This 44-year-old lady had been evaluated in [facility] for possible obstructive sleep apnea-hypopnea syndrome. HISTORY OF PRESENT ILLNESS/SLEEP-WAKE EVALUATION: Patient usual sleep schedule from 10 p.m. to 7:38 a.m. on weekdays and from 11 p.m. to 9 or 10 a.m. on weekend. Sometimes she has problems with falling asleep. She preferred to sleep on the side position, does not like to sleep on the back. She says TV set in bedroom. She wakes up from sleep more than 2 times with 1 or more episodes of nocturia. She wakes up with episodes of grinding teeth and dry mouth and sweating. The patient occasionally snores. During the day, she may feel sleepy, especially as a passenger in the car and afternoon. Dunlap Sleepiness Scale increased to 12. PAST MEDICAL HISTORY: Positive for hypertension not on good control with four medications, positive history of depression, migraine. PAST SURGICAL HISTORY: Partial hysterectomy, gastric bypass surgery, , and surgery for right radius fracture. MEDICATIONS: Propranolol 240 mg twice a day, citalopram 40 mg once a day, Lamictal 150 mg twice a day, bupropion 300 mg once a day, 37.5 mg once a day, valsartan 160 mg twice a day, amlodipine 2.5 mg twice a day. SOCIAL HISTORY: Positive for smoking half pack a day for about 20 years. Quit 15 years ago. FAMILY HISTORY: Emphysema. REVIEW OF SYSTEMS: Awakenings from sleep, sleepiness during the day. High blood pressure, not on good control with medications. PHYSICAL EXAMINATION: GENERAL: lady without distress. VITAL SIGNS: BP 110/65, HR 73, RR 15, height 5 feet 4 inches, weight 193.2, BMI 33.1, temperature 97.7, oxygen saturation at room air 98%. HEENT: PERRLA, EOMI. Oropharynx small oropharyngeal air space, wide pillars, position of soft palate, Mallampati 2-3. NECK: 14-1/2 inches in circumference. LUNGS: Clear to percussion and to auscultation. Good air exchange. No wheezing or rhonchi. HEART: S1, S2 regular. No murmurs, gallops, or rubs. ABDOMEN: Slightly obese. EXTREMITIES: No clubbing or cyanosis. TACKER OFF: Awake, alert, and oriented X3. Cranial nerves 2 to 7 intact. There is no fasciculation or atrophy. noted. No focal deficits observed. IMPRESSION: 1. Occasional snoring, small oropharyngeal air space, awakenings from sleep more than 2 times with episodes of nocturia, dry mouth and sweating, possible obstructive sleep apnea and sleepiness. Dunlap Sleepiness Scale is 12. Possible obstructive sleep apnea-hypopnea syndrome. 2. Hypertension, not under on good control with 4 medications usually. 3. Obesity, body mass index 33.1. 4. History of depression. 5. Migraines. 6. Status post partial hysterectomy. 7. Status post gastric bypass surgery. 8. Status post abdominoplasty surgery. 9. Status post . 10.Status post surgical treatment of fracture of right radius in the past. PLAN: 1. Home sleep apnea test for checking patient breathing during sleep. 2. Following plan after reviewing results of sleep study. 3. Losing weight. 4. Sleep hygiene with regular time in bed for 7-1/2 to 8 hours. 5. No driving if feeling sleepiness. Thank you very much for referring this patient for consultation. Sincerely, Pop Zepeda MD, PhD, FAASM Diplomat of [place] [employer] [place] [employer] [place] [employer] [facility] [place] MMODL / GUDELIAN: [id number] /
== END | disposition home or self-care (01) ==
LOC: SLEEP 10:53
PROVIDERS: ATTEND Internal Medicine
DX: R06.83 Snoring (principal); I10 Essential (primary) hypertension; G43.909 Migraine, unspecified, not intractable, without status migrainosus; F17.210 Nicotine dependence, cigarettes, uncomplicated; E66.9 Obesity, unspecified; Z68.33 Body mass index [BMI] 33.0-33.9, adult; Z90.710 Acquired absence of both cervix and uterus; Z98.84 Bariatric surgery status; Z86.59 Personal history of other mental and behavioral disorders; Z87.81 Personal history of (healed) traumatic fracture; Z79.899 Other long term (current) drug therapy
CPT/HCPCS: 99211

== ENCOUNTER → 2020-08-09 | Outpatient (CLI) | payer BC ==
--- NOTE | 2020-08-09 09:57 | US ---
EXAMINATION TYPE: US renal artery duplex complet DATE OF EXAM: 08/09/2020 COMPARISON: NONE CLINICAL HISTORY: I10 hypertension. MEASUREMENTS: RENAL SIZE: Rt Kidney: 9.5 x 4.9 x 5.1cm Lt Kidney: 9.8 x 5.3 x 4.7cm RESISTANCE INDEX Right: 0.57 Left: 0.53 RA/AO RATIO (< 3.5 ) Right: 1.9 Left: 1.8 RA VELOCITY ( < 180 cm/s) Right: 135 Left: 127 No evidence of renal artery stenosis by ultrasound. Somewhat technically limited due to overlying bow el gas. IMPRESSION: No evidence for renal artery stenosis
[2020-08-09 10:05] LABS: Calcium 8.7 mg/dL (8.4-10.2); Potassium 3.9 mmol/L (3.5-5.1)
[2020-08-09 10:20] LABS: T4, Free (Free Thyroxine) 0.76 ng/dL (0.78-2.19)
== END | disposition home or self-care (01) ==
LOC: RADUSWWP 08:07
PROVIDERS: ATTEND Internal Medicine Clinical Cardiac Electrophysiology
DX: I10 Essential (primary) hypertension (principal); E03.9 Hypothyroidism, unspecified
CPT/HCPCS: 36415; 80048; 84439; 84443; 84481; 93975

== ENCOUNTER 2021-04-16 00:37 | Inpatient (IN) | payer BC ==
[2021-04-16 01:00] LABS: Glucose,Whole Blood 105 mg/dL (75-99)
--- NOTE | 2021-04-16 01:05 | CT ---
EXAMINATION TYPE: CT brain wo con for TPA DATE OF EXAM: 04/16/2021 COMPARISON: 03/27/2020 HISTORY: stroke CT DLP: 1094.4 mGycm Automated exposure control for dose reduction was used. Images of the brain obtained without contrast. Ventricles and sulci appear normal. There is no mass effect or midline shift. There is no sign of int racranial hemorrhage. Calvarium is intact. The skull base is intact. There is normal aeration of the mastoid sinuses. IMPRESSION: Negative unenhanced head CT scan. No change.
[2021-04-16 01:20] LABS: Basophils # (A) 0.1 k/uL (0-0.2); Basophils % (A) 1 %; Eosinophils # (A) 0.1 k/uL (0-0.7); Eosinophils % (A) 2 %; HCT 40.8 % (34.0-46.0); HGB 13.8 gm/dL (11.4-16.0); Lymphocytes # (A) 3.6 k/uL (1.0-4.8); Lymphocytes % (A) 51 %; MCH 35.1 pg (25.0-35.0); MCHC 33.9 g/dL (31.0-37.0); MCV 103.3 fL (80.0-100.0); Macrocytosis Slight; Mean Platelet Volume 7.3; Monocytes # (A) 0.3 k/uL (0-1.0); Monocytes % (A) 4 %; Neutrophils # (A) 2.8 k/uL (1.3-7.7); Neutrophils % (A) 40 %; Platelet Count 297 k/uL (150-450); RBC 3.95 m/uL (3.80-5.40); RDW 13.1 % (11.5-15.5)
--- NOTE | 2021-04-16 01:22 | ED ---
Neuro HPI - General Chief Complaint: Neuro Symptoms/Deficit Stated Complaint: Facial numbness, stroke-like symptoms Time Seen by Provider: 04/16/21 00:49 Source: patient Mode of arrival: ambulatory Limitations: no limitations - History of Present Illness Is the patient presenting with stroke symptoms?: Yes Last Known Well Date: 04/16/21 Last Known Well Time: 00:05 Onset/Timin -: hour(s) Location: speech, left face History of same: No Place: home Severity: mild Quality: weak, numb Improves With: none Worsens With: none On Anticoagulants: No Context: sudden onset Associated Symptoms: denies other symptoms Treatments Prior to Arrival: none - Related Data Home Medications: Home Medications Medication Instructions Recorded Confirmed Citalopram Hydrobromide 40 mg PO DAILY 03/27/20 04/17/20 [Citalopram HBr] lamoTRIgine [LaMICtal] 150 mg PO BID 03/27/20 04/17/20 Previous Rx's Medication Instructions Recorded Lisinopril [Zestril] 20 mg PO BID #60 tab 03/29/20 Propranolol LA [Inderal LA] 80 mg PO DAILY #30 cap 03/29/20 buPROPion XL [Wellbutrin XL] 300 mg PO DAILY #30 tab.er.24h 04/19/20 Allergies/Adverse Reactions: Allergies Allergy/AdvReac Type Severity Reaction Status Date / Time No Known Allergies Allergy Verified 04/16/21 00:44 Review of Systems ROS Statement: Those systems with pertinent positive or pertinent negative responses have been documented in the HPI. ROS Other: All systems not noted in ROS Statement are negative. Constitutional: Denies: fever, chills Eyes: Denies: eye pain, vision change Respiratory: Denies: cough, dyspnea Cardiovascular: Denies: chest pain, palpitations Gastrointestinal: Denies: abdominal pain, vomiting, diarrhea Genitourinary: Denies: dysuria, hematuria Musculoskeletal: Denies: back pain Skin: Denies: rash Neurological: Reports: as per HPI, weakness, numbness. Denies: confusion Hematological/Lymphatic: Denies: easy bleeding General Exam Limitations: no limitations General appearance: alert, in no apparent distress Head exam: Present: atraumatic, normocephalic Eye exam: Present: normal appearance, PERRL, EOMI. Absent: scleral icterus, conjunctival injection, nystagmus ENT exam: Present: normal oropharynx Neck exam: Present: normal inspection, full ROM Respiratory exam: Present: normal lung sounds bilaterally. Absent: respiratory distress, wheezes, rales, rhonchi, stridor Cardiovascular Exam: Present: regular rate, normal rhythm, normal heart sounds. Absent: systolic murmur, diastolic murmur, rubs, gallop GI/Abdominal exam: Present: soft. Absent: distended, tenderness, guarding, rebound Extremities exam: Present: normal inspection, normal capillary refill. Absent: pedal edema, calf tenderness Back exam: Present: normal inspection Neurological exam: Present: alert, oriented X3. Absent: CN II-XII intact, motor sensory deficit Expanded Patient oriented to: Present: person, place, time Speech: Present: fluid speech Cranial nerves: EOM's Intact: Normal, Gag Reflex: Normal, Tongue Deviation: Normal Cerebellar function: Finger to Nose: Normal Sensory exam: Upper Extremity Light Touch: Normal, Lower Extremity Light Touch: Normal Motor strength exam: RUE: 5, LUE: 5, RLE: 5, LLE: 5 Eye Response: (4) open spontaneously Motor Response: (6) obeys commands Verbal Response: (5) oriented Skin exam: Present: warm, dry, intact, normal color. Absent: rash Stroke MDM - Lab Data Result diagrams: 04/16/21 00:55 04/16/21 00:55 Lab Results 04/16/21 04/16/21 04/16/21 Range/Units 00:55 00:55 00:58 WBC 7.0 (3.8-10.6) k/uL RBC 3.95 (3.80-5.40) m/uL Hgb 13.8 (11.4-16.0) gm/dL Hct 40.8 (34.0-46.0) % MCV 103.3 H (80.0-100.0) fL MCH 35.1 H (25.0-35.0) pg MCHC 33.9 (31.0-37.0) g/dL RDW 13.1 (11.5-15.5) % Plt Count 297 (150-450) k/uL MPV 7.3 Neutrophils % 40 % Lymphocytes % 51 % Monocytes % 4 % Eosinophils % 2 % Basophils % 1 % Neutrophils # 2.8 (1.3-7.7) k/uL Lymphocytes # 3.6 (1.0-4.8) k/uL Monocytes # 0.3 (0-1.0) k/uL Eosinophils # 0.1 (0-0.7) k/uL Basophils # 0.1 (0-0.2) k/uL Macrocytosis Slight Sodium 139 (137-145) mmol/L Potassium 4.8 (3.5-5.1) mmol/L Chloride 101 (98-107) mmol/L Carbon Dioxide 22 (22-30) mmol/L Anion Gap 16 mmol/L BUN 17 (7-17) mg/dL Creatinine 1.00 (0.52-1.04) mg/dL Est GFR (CKD-EPI)AfAm 78 (>60 ml/min/1.73 sqM) Est GFR (CKD-EPI)NonAf 68 (>60 ml/min/1.73 sqM) Glucose 103 H (74-99) mg/dL POC Glucose (mg/dL) 105 H (75-99) mg/dL POC Glu Leave Coordinator ID Kiarra Loja Calcium 9.5 (8.4-10.2) mg/dL Total Bilirubin 1.0 (0.2-1.3) mg/dL AST 48 H (14-36) U/L ALT 39 H (4-34) U/L Alkaline Phosphatase 55 (38-126) U/L Total Protein 7.8 (6.3-8.2) g/dL Albumin 4.7 (3.5-5.0) g/dL - EKG Data -: EKG Interpreted by Me EKG shows normal: sinus rhythm, axis (Normal), intervals (Normal), QRS complexes (Normal), ST-T waves (Normal) Rate: normal (Rate 69 bpm) Past Medical History Past Medical History: No Reported History, Hypertension Additional Past Medical History / Comment(s): migraines/mixed anxiety and depression History of Any Multi-Drug Resistant Organisms: None Reported Past Surgical History: Bariatric Surgery, Bladder Surgery, Section, Hysterectomy Additional Past Surgical History / Comment(s): gastric bypass Past Anesthesia/Blood Transfusion Reactions: No Reported Reaction Past Psychological History: Anxiety, Depression Smoking Status: Current some day smoker Past Alcohol Use History: Occasional Past Drug Use History: None Reported - Past Family History Father History Unknown: Yes Mother History Unknown: Yes Course Vital Signs 04/16/21 04/16/21 04/16/21 00:44 00:59 01:14 Temperature 98.4 F 98.4 F 98.4 F Pulse Rate 70 68 68 Respiratory 16 20 20 Rate Blood Pressure 142/91 136/91 130/94 O2 Sat by Pulse 96 98 97 Oximetry 04/16/21 01:29 Temperature 98.4 F Pulse Rate 66 Respiratory 20 Rate Blood Pressure 127/86 O2 Sat by Pulse 98 Oximetry - Reevaluation(s) Reevaluation #1: 04/16/21 01:38 This discussed with stroke team, Dr. Sahni is on-call. He did then review the CT scans. We discussed the case again after he had reviewed the scans and patient deemed not a TPA candidate as she is starting to show resolution of symptoms. Patient states she is regaining facial sensation and her speech is improving. Other is still small amount of residual facial weakness but this has improved as well. Disposition Clinical Impression: Cerebrovascular accident (CVA) Narrative: Acute ischemic stroke versus TIA Disposition: ADMITTED IP TO THIS HOSP Condition: Good Is patient prescribed a controlled substance at d/c from ED?: No Referrals: Tony Fulton MD [Primary Care Provider] - 1-2 days
[2021-04-16 01:23] LABS: INR 0.9 (<1.2); Partial Thromboplastin Time 23.5 sec (22.0-30.0); Prothrombin Time 9.6 sec (9.0-12.0)
[2021-04-16 01:28] LABS: Albumin 4.7 g/dL (3.5-5.0); Calcium 9.5 mg/dL (8.4-10.2); Potassium 4.8 mmol/L (3.5-5.1); Total Protein 7.8 g/dL (6.3-8.2)
--- NOTE | 2021-04-16 01:29 | XR ---
EXAMINATION TYPE: XR chest 1V portable DATE OF EXAM: 04/16/2021 COMPARISON: 03/27/2020 HISTORY: Altered mental status TECHNIQUE: Single view FINDINGS: Heart and mediastinum are normal. Lungs are clear of infiltrate. There is no heart failure. There are no hilar masses. Costophrenic angles are clear. IMPRESSION: No active cardiopulmonary disease. No change.
--- NOTE | 2021-04-16 01:39 | CT ---
EXAMINATION TYPE: CT angio head neck DATE OF EXAM: 04/16/2021 COMPARISON: 03/27/2020 HISTORY: stroke CT DLP: 658.5 mGycm Automated exposure control for dose reduction was used. CONTRAST: Performed with IV Contrast, patient injected with 65 mL of Isovue 370. Images obtained from the aortic arch to the vertex of the brain with IV contrast. There are Three-D p ostprocessed images. There is normal branching pattern of the great vessels, aortic arch. There is bilateral arterial flow in the subclavian arteries. There is arterial flow in the common internal and external carotid arter ies bilaterally. There is wide patency of the carotid artery bifurcations. The common carotid arterie s show significant medial deviation and almost in contact in the prevertebral cervical spine. There i s no evidence of carotid or vertebral artery aneurysm or dissection. Vertebral arteries are fairly sy mmetric. There is arterial flow in the vertebrobasilar artery system. There is arterial flow in the anterior middle and posterior cerebral arteries. There is no mass effec t. There is no evidence of intracranial aneurysm or neovascularity. There is diminutive A1 segment of the right anterior cerebral artery. This is probably developmental. I see no evidence of stenosis re lated to atherosclerotic disease. Right anterior cerebral artery probably fills significantly through the anterior communicating artery. There is normal enhancement of the venous sinuses. IMPRESSION: Negative CT angiogram of the neck. No significant intracranial angiographic abnormality. No change compared to old exam.
[2021-04-16] MEDS ORDERED: ASPIRIN 325 MG TAB PO STA (01:40)
[2021-04-16] MEDS: SODIUM CHLORIDE 0.9% 1,000 ML IV SCH ×2 (01:59→15:53)
[2021-04-16] MEDS: FAMOTIDINE 20 MG TAB PO SCH ×2 (08:58→21:34)
[2021-04-16] MEDS ORDERED: HEPARIN SODIUM,PORCINE/PF 5,000 UNIT/0.5 ML SYRINGE SQ SCH (09:00)
--- NOTE | 2021-04-16 10:46 | P.CNNES ---
History of Present Illness Consult date: 04/16/21 Requesting physician: Temo Samson Reason for Consult: acute ishcemic stroke vs TIA History of Present Illness: This is a 45-year-old woman with medical history of hypertension, migraine, depression and anxiety who presented to the emergency department on 04/16/2021 for left facial numbness and slurring of speech. Patient stated that she noticed her symptoms around midnight yesterday and she noticed that her entire left side of the face is numb and that was slurring her speech. She denied any facial weakness that that she the appreciated. Otherwise she denies a any weakness, numbness, any visual disturbance or any headache associate with this. Currently she feels her numbness is improving but she continues to have numbness over left side of the face but her speech has improved. As stated earlier she does have history of migraine but she denies any headache associated with this or any visual disturbances associated with this. She is not on any antiplatelets or anticoagulation. She said that she had the family history of brain aneurysm and that's in her father, as a result she had workup and was n egative for any aneurysm was told on imaging and possibly she had a stroke. Was recommended the patient to be on aspirin for secondary stroke prophylaxis by her neurologist (Dr. Denney) she has not started the taking aspirin. She is not on any statin. She does have history of gastric bypass about 7 years ago. She does smoke about the 3-4 cigarettes a day and she's been smoking for years. She drinks alcohol and she drank about 3 glasses of wine which were 6 ounces and she said she drinks about 1-3 glasses of wine 3 times a week. She denies any history of alcohol withdrawal. Patient denies any history of seizures. Patient is on Lamictal 150 mg 1 tablet twice a day (for her mood problems), propranolol, lisinopril, Wellbutrin throughout her milligrams daily and Citalopram. Some of the work-up: Initial vitals: Blood pressure 142/91, HR 70, RR 16, Temp 98.4F oral and pulse oxygen 96% at room. Chemistry panel: Na 139, Creatnine 1.0, glucose 103, calcium 9.5, AST 48, ALT 39. Coronavirus PCR: Not detected. CT brain: Is reported negative unenhanced head CT scan. No change. I Reviewed the CT of the head and there is no acute or subacute ischemia and there is no interictal hemorrhage. CT angiography of the head and neck was reported as negative. Stroke code was activated by the ED and they spoke with the stroke attending (Dr. Sahni) and that was felt per the ED note the patient is not TPA candidate since the patient is having resolution of symptoms EKG is reported as normal sinus rhythm. Cannot rule out anterior infarct, age undetermined. Abnormal EKG. Review of Systems Review of system: The 12 point system was reviewed and apparent positive and negative per HPI. Past Medical History Past Medical History: No Reported History, Hypertension Additional Past Medical History / Comment(s): migraines/mixed anxiety and depression History of Any Multi-Drug Resistant Organisms: None Reported Past Surgical History: Bariatric Surgery, Bladder Surgery, Section, Hysterectomy Additional Past Surgical History / Comment(s): gastric bypass Past Anesthesia/Blood Transfusion Reactions: No Reported Reaction Past Psychological History: Anxiety, Depression Smoking Status: Current some day smoker Past Alcohol Use History: Occasional Past Drug Use History: None Reported - Past Family History Father History Unknown: Yes Mother History Unknown: Yes Medications and Allergies Home Medications Medication Instructions Recorded Confirmed Type Citalopram Hydrobromide 40 mg PO DAILY 03/27/20 04/16/21 History [Citalopram HBr] buPROPion XL [Wellbutrin XL] 300 mg PO DAILY #30 tab.er.24h 04/19/20 04/16/21 Rx Propranolol HCl [Inderal Xl] 80 mg PO BID 04/16/21 04/16/21 History Propranolol HCl [Propranolol HCl 160 mg PO BID 04/16/21 04/16/21 History ER] Rimegepant Sulfate [Nurtec Odt] 75 mg PO DAILY PRN 04/16/21 04/16/21 History Triamterene-Hctz 37.5-25Mg 1 cap PO DAILY 04/16/21 04/16/21 History [Dyazide 37.5-25 Capsule] Valsartan 160 mg PO BID 04/16/21 04/16/21 History amLODIPine [Norvasc] 2.5 mg PO DAILY 04/16/21 04/16/21 History lamoTRIgine [LaMICtal] 150 mg PO BID 04/16/21 04/16/21 History Allergies Allergy/AdvReac Type Severity Reaction Status Date / Time No Known Allergies Allergy Verified 04/16/21 09:42 Physical Examination - Vital Signs Vital Signs: Vital Signs Temp Pulse Resp BP Pulse Ox 04/16/21 04:42 66 18 102/69 99 04/16/21 03:44 98.0 F 60 20 108/76 99 04/16/21 02:44 98.2 F 63 20 104/71 98 04/16/21 02:14 98.2 F 61 20 110/76 97 04/16/21 01:44 98.2 F 64 20 118/82 97 04/16/21 01:29 98.4 F 66 20 127/86 98 04/16/21 01:14 98.4 F 68 20 130/94 97 04/16/21 00:59 98.4 F 68 20 136/91 98 04/16/21 00:44 98.4 F 70 16 142/91 96 Intake and Output 04/15/21 04/16/21 04/16/21 22:59 06:59 14:59 Other: Weight 89.358 kg GENERAL: The patient is lying in bed and is not in acute distress. CHEST: The heart rate is regular rate rhythm. No murmurs to auscultation. No carotid bruit bilaterally. LUNG: Clear to auscultation bilaterally no wheezing noted throughout. Not labored breathing. ABDOMEN/GI: Bowel sounds present in all 4 quadrants. No tenderness to palpation throughout. NEUROLOGICAL: Higher mental function: The patient is awake, alert, oriented to self, place and time. Patient is following commands. No aphasia and no neglect. Cranial nerves: The pupils are round, equal and reactive to light and accommodation. Visual kenney are full to confrontation throughout. Extraocular movement is intact no nystagmus is noted. Facial sensation is decreased over the entire left side (but mostly over the left V2) to touch. The facial strength is normal throughout. Hearing is normal bilaterally to hand rub. Tongue is midline and moved [id number] without any difficulty. No dysarthria is noted. Shoulder shrug is normal bilaterally. Motor: Gait is deferred. The strength is 5 over 5 throughout. Normal tone and bulk. Cerebellum: Normal finger to nose heel to denis bilaterally. Sensation: Sensation is normal to touch throughout. Reflexes (right/left): 2+ throughout. Plantars are downgoing bilaterally. Results - Laboratory Findings CBC and BMP: 01/03/22 00:55 04/16/21 00:55 Abnormal Lab Findings: Abnormal Labs 04/16/21 04/16/21 04/16/21 00:55 00:55 00:58 MCV 103.3 H MCH 35.1 H Glucose 103 H POC Glucose (mg/dL) 105 H AST 48 H ALT 39 H Assessment and Plan Assessment: Left facial numbness with dyarthria seems likely suggestive of TIA. History of hypertension History of Migraine with aura (visual) History of depression History of anxiety Tobacco use Plan: In the ED the patient was given aspirin 325 once then was started on aspirin 325mg daily. I decreased it to ASA 81mg daily. Patient was started on pravastatin 40 mg daily at bedtime for secondary stroke prophylaxis. Ordered MRI of the brain, 2-D echo, TSH. Lipid panel is ordered and is pending PT, OT and [employer] are consulted Continue neuro checks Placed on cardiac monitoring. We'll defer the rest of the medical management to the primary team For DVT prophylaxis: Placed on subq heparin 5000U every 12 hours. Upon discharge, the patient needs to follow-up with her neurologist within 1-2 weeks (Dr. Denney). Thank you for the consultation. Nabil Dean MD Neuro-Hospitalist Time with Patient: Greater than 30
--- NOTE | 2021-04-16 15:50 | ECHOF ---
Referral Reason:stroke. Perform with bubble MEASUREMENTS -------- HEIGHT: 160.0 cm WEIGHT: 89.4 kg BP: RVIDd: 2.7 cm (< 3.3) IVSd: 1.3 cm (0.6 - 1.1) LVIDd: 3.7 cm (3.9 - 5.3) LVPWd: 1.2 cm (0.6 - 1.1) IVSs: 1.6 cm LVIDs: 2.6 cm LVPWs: 1.5 cm LA Diam: 3.2 cm (2.7 - 3.8) LAESV Index (A-L): 23.47 ml/m Ao Diam: 2.9 cm (2.0 - 3.7) AV Cusp: 1.9 cm (1.5 - 2.6) MV EXCURSION: 12.451 mm (> 18.000) MV EF SLOPE: 72 mm/s (70 - 150) EPSS: 0.4 cm MV E Connor: 0.81 m/s MV DecT: 229 ms MV A Connor: 0.77 m/s MV E/A Ratio: 1.05 RAP: 5.00 mmHg RVSP: 26.03 mmHg FINDINGS -------- Sinus rhythm. This was a technically adequate study. The left ventricular size is normal. There is mild concentric left ventricular hypertrophy. Overa ll left ventricular systolic function is normal with, an EF between 60 - 65 %. The right ventricle is normal in size. Normal LA size by volume 22+/-6 ml/m2. The right atrium is normal in size. Interatrial and interventricular septum intact. There is mild aortic regurgitation. The mitral valve is normal. Mild tricuspid regurgitation present. Right ventricular systolic pressure is normal at < 35 mmHg. The pulmonic valve is normal. The aortic root size is normal. Normal inferior vena cava with normal inspiratory collapse consistent with estimated right atrial pre ssure of 5 mmHg. There is no pericardial effusion. CONCLUSIONS -------- 1. The left ventricular size is normal. 2. There is mild concentric left ventricular hypertrophy. 3. Overall left ventricular systolic function is normal with, an EF between 60 - 65 %. 4. There is mild aortic regurgitation. 5. Mild tricuspid regurgitation present. 6. There is no pericardial effusion. GRIDDLE ATTENDANT: Audrey Underwood RDCS
[2021-04-16] MEDS: HEPARIN SODIUM,PORCINE/PF 5,000 UNIT/0.5 ML SYRINGE SQ SCH (16:29)
[2021-04-16] MEDS ORDERED: ZOLPIDEM 5 MG TAB PO PRN (18:44)
[2021-04-16] MEDS ORDERED: PRAVASTATIN SODIUM 40 MG TAB PO SCH (21:00)
[2021-04-16] MEDS: lamoTRIgine 100 MG TAB PO SCH (21:30)
--- NOTE | 2021-04-17 00:20 | P.HPIM ---
History of Present Illness H&P Date: 04/16/21 Chief Complaint: Left facial numbness Patient is a 45-year-old female with a known history of hypertension, bariatric surgery/gastric bypass, anxiety/depression, migraine headaches, currently everyday smoker presents to ER with complaints of left-sided facial numbness started before going to bed last night. Patient was drinking wine at the onset of symptoms. symptoms lasted for about 2 and half hours. Denied any complaints of weakness or facial droop. Left eyelid felt heavy as per patient. No complaints of headache or dizziness or lightheadedness. Patient did have slurred speech mainly due to numbness as per patient. Patient follow-up with neurology and was started on new medication for migraine headaches prophylaxis about 2 weeks ago. Denied any recent illnesses. No fever no chills. No neck stiffness. No cough or sputum production. Denies any history of seizures. Patient does drink wine 3-4 times a week. On admission CT head showed negative unenhanced head CT. Chest x-ray showed no active cardiopulmonary disease. No change. CT angiogram of the head and neck showed negative CT angiogram of the neck. No significant intracranial angiographic abnormality. No change prior to all exam. Laboratory data showed WBC 7.0 hemoglobin 13.8 and MCV 103.3 and platelets 297 Sodium 139 potassium 4.8 chloride 101 bicarb is 22 BUN 17 and creatinine 1.0 glucose 103 AST 48 ALT 39 and alk phos 55 Troponin x3 - TSH within normal limits. Review of Systems Constitutional: Patient denies any fever or chills . No generalized weakness or weight loss. Abdomen: Patient denied nausea vomiting and diarrhea and abdominal pain. Cardiovascular: Patient denies any chest pain or short of breath no palpitations. Respiratory: patient denied any cough or sputum production. No shortness of breath Neurologic: Patient denied any numbness or tingling headache. Musculoskeletal: Patient denies any complaints of joint swelling or deformity. Skin: Negative Psychiatric: Negative Endocrine: No heat or cold intolerance. No recent weight gain. Genitourinary: No dysuria or hematuria. All other 14 point ROS negative except the above Past Medical History Past Medical History: No Reported History, Hypertension Additional Past Medical History / Comment(s): migraines/mixed anxiety and depression History of Any Multi-Drug Resistant Organisms: None Reported Past Surgical History: Bariatric Surgery, Bladder Surgery, Section, Hysterectomy Additional Past Surgical History / Comment(s): gastric bypass Past Anesthesia/Blood Transfusion Reactions: No Reported Reaction Past Psychological History: Anxiety, Depression Smoking Status: Current some day smoker Past Alcohol Use History: Occasional Past Drug Use History: None Reported - Past Family History Father History Unknown: Yes Mother History Unknown: Yes Medications and Allergies Home Medications Medication Instructions Recorded Confirmed Type Citalopram Hydrobromide 40 mg PO DAILY 03/27/20 04/16/21 History [Citalopram HBr] buPROPion XL [Wellbutrin XL] 300 mg PO DAILY #30 tab.er.24h 04/19/20 04/16/21 Rx Propranolol HCl [Inderal Xl] 80 mg PO BID 04/16/21 04/16/21 History Propranolol HCl [Propranolol HCl 160 mg PO BID 04/16/21 04/16/21 History ER] Rimegepant Sulfate [Nurtec Odt] 75 mg PO DAILY PRN 04/16/21 04/16/21 History Triamterene-Hctz 37.5-25Mg 1 cap PO DAILY 04/16/21 04/16/21 History [Dyazide 37.5-25 Capsule] Valsartan 160 mg PO BID 04/16/21 04/16/21 History amLODIPine [Norvasc] 2.5 mg PO DAILY 04/16/21 04/16/21 History lamoTRIgine [LaMICtal] 150 mg PO BID 04/16/21 04/16/21 History Allergies Allergy/AdvReac Type Severity Reaction Status Date / Time No Known Allergies Allergy Verified 04/16/21 09:42 Physical Exam Vitals: Vital Signs Temp Pulse Resp BP Pulse Ox 04/16/21 08:55 64 16 115/87 98 04/16/21 07:10 98.3 F 64 16 130/77 98 04/16/21 04:42 66 18 102/69 99 04/16/21 03:44 98.0 F 60 20 108/76 99 04/16/21 02:44 98.2 F 63 20 104/71 98 04/16/21 02:14 98.2 F 61 20 110/76 97 04/16/21 01:44 98.2 F 64 20 118/82 97 04/16/21 01:29 98.4 F 66 20 127/86 98 04/16/21 01:14 98.4 F 68 20 130/94 97 04/16/21 00:59 98.4 F 68 20 136/91 98 04/16/21 00:44 98.4 F 70 16 142/91 96 Intake and Output 04/15/21 04/16/21 04/16/21 22:59 06:59 14:59 Other: Weight 89.358 kg PHYSICAL EXAMINATION: Patient is lying in the bed comfortably, no acute distress, awake alert and oriented.. HEENT: Normocephalic. Neck is supple. Pupils reactive. Nostrils clear. Oral cavity is moist. Neck reveals no JVD, carotid bruits, or thyromegaly. CHEST EXAMINATION: Trachea is central. Symmetrical expansion. Lung kenney clear to auscultation and percussion. CARDIAC: Normal S1, S2 with no gallops. No murmurs ABDOMEN: Soft. Bowel sounds normal. No organomegaly. No abdominal bruits. Extremities: reveal no edema. No clubbing or cyanosis Neurologically awake, alert, oriented x3 with well-coordinated movements. No focal deficits noted Skin: No rash or skin lesions. Psychiatric: Cooperative. Nonsuicidal, anxious Musculoskeletal: No joint swelling or deformity. Normal range of motion. Results CBC & Chem 7: 04/16/21 00:55 04/16/21 00:55 Labs: Abnormal Lab Results - Last 24 Hours (Table) 04/16/21 04/16/21 04/16/21 Range/Units 00:55 00:55 00:58 MCV 103.3 H (80.0-100.0) fL MCH 35.1 H (25.0-35.0) pg Glucose 103 H (74-99) mg/dL POC Glucose (mg/dL) 105 H (75-99) mg/dL AST 48 H (14-36) U/L ALT 39 H (4-34) U/L Thrombosis Risk Factor Assmnt - DVT/VTE Prophylaxis DVT/VTE Prophylaxis: Pharmacologic Prophylaxis ordered Assessment and Plan Assessment: Left facial numbness with slurred speech. Symptoms resolved now. Likely TIA. Rule out acute CVA. Migraine headaches. Hypertension Anxiety/depression Currently everyday smoker Alcohol use 3-4 times per week DVT prophylaxis with heparin subcu Plan: Patient will be continued on aspirin 81 mg daily. Started on statin as well for secondary stroke prophylaxis. CT head and CT angio of the head and neck is negative. MRI of the brain was ordered. TSH B12 and 2D echocardiogram was ordered. Continue with neurochecks.. Patient was counseled for smoking cessation and alcohol abstinence. Neurology is on board. Continue to follow closely. Time with Patient: Greater than 30
[2021-04-17] MEDS: HEPARIN SODIUM,PORCINE/PF 5,000 UNIT/0.5 ML SYRINGE SQ SCH ×2 (01:56→08:28)
[2021-04-17] MEDS: SODIUM CHLORIDE 0.9% 1,000 ML IV SCH ×2 (07:18→15:02)
[2021-04-17] MEDS: lamoTRIgine 100 MG TAB PO SCH (08:27)
[2021-04-17] MEDS: FAMOTIDINE 20 MG TAB PO SCH (08:27)
[2021-04-17 08:50] LABS: African American GFR (CKD) 79 (>60 ml/min/1.73 sqM); Anion Gap 5 mmol/L; Blood Urea Nitrogen 12 mg/dL (7-17); Calcium 8.8 mg/dL (8.4-10.2); Carbon Dioxide 29 mmol/L (22-30); Chloride 101 mmol/L (98-107); Glucose 87 mg/dL (74-99); Non-African American GFR(CKD) 69 (>60 ml/min/1.73 sqM); Potassium 3.6 mmol/L (3.5-5.1); Sodium 135 mmol/L (137-145)
[2021-04-17] MEDS ORDERED: CITALOPRAM HYDROBROMIDE 20 MG TAB PO SCH (09:00)
[2021-04-17] MEDS ORDERED: ASPIRIN 325 MG TAB PO SCH (09:00)
[2021-04-17] MEDS ORDERED: ASPIRIN 81 MG PO SCH (09:00)
[2021-04-17 10:49] VITALS: PULSE 61; RESP 20
[2021-04-17 11:39] VITALS: BP 142/87; TEMP 98
--- NOTE | 2021-04-17 12:22 | P.PN ---
Subjective Progress Note Date: 04/17/21 The patient is seen at bedside and she feels better today compared to initial presentation. She stated her numbness has resolved. She denies of any headaches. Objective - Vital Signs Vital signs: Vital Signs Temp 97.8 F 04/17/21 08:00 Pulse 61 04/17/21 08:00 Resp 20 04/17/21 08:00 BP 119/80 04/17/21 08:00 Pulse Ox 97 04/17/21 08:00 Intake & Output 04/16/21 04/17/21 04/17/21 18:59 06:59 18:59 Intake Total 120 Balance 120 Weight 88.904 kg Intake: Oral 120 Other: Voiding Method Toilet Toilet # Voids 1 1 # Bowel Movements 1 - Exam GENERAL: The patient is lying in bed and is not in acute distress. NEUROLOGICAL: Higher mental function: The patient is awake, alert, oriented to self, place and time. Patient is following commands. No aphasia and no neglect. Cranial nerves: The pupils are round, equal and reactive to light and accommodation. Visual kenney are full to confrontation throughout. Extraocular movement is intact no nystagmus is noted. Facial sensation is normal to touch. The facial strength is normal throughout. Hearing is normal bilaterally to hand rub. Tongue is midline and moved [id number] without any difficulty. No dysarthria is noted. Shoulder shrug is normal bilaterally. Motor: Gait is deferred. The strength is 5 over 5 throughout. Normal tone and bulk. Cerebellum: Normal finger to nose heel to denis bilaterally. Sensation: Sensation is normal to touch throughout. Reflexes (right/left): 2+ throughout. Plantars are downgoing bilaterally. WORK-UP: Some of the work-up: TSH is 3.270. Coronavirus PCR: Not detected. CT brain: Is reported negative unenhanced head CT scan. No change. I Reviewed the CT of the head and there is no acute or subacute ischemia and there is no interictal hemorrhage. CT angiography of the head and neck was reported as negative. EKG is reported as normal sinus rhythm. Cannot rule out anterior infarct, age undetermined. Abnormal EKG. 2-D echo was reported as mild concentric left ventricular hypertrophy. Ejection fraction of 60-65%. Normal left atrial size by volume. - Labs CBC & Chem 7: 04/16/21 00:55 04/17/21 07:03 Labs: Abnormal Lab Results - Last 24 Hours (Table) 04/17/21 Range/Units 07:03 Sodium 135 L (137-145) mmol/L Assessment and Plan Assessment: Transient Left facial numbness with dyarthria seems likely suggestive of TIA (especially with her risk factors). Cannot rule out complicated migraine (or aka silent migraine which can have aura without headache). History of hypertension History of Migraine with aura (visual) History of depression History of anxiety Tobacco use Plan: Continue ASA 81mg daily (she was not on any antiplateletes prior to this). Continue pravastatin 40 mg daily at bedtime for secondary stroke prophylaxis. Pending MRI Brain. Lipid panel and Vitamin B12 are pending. PT, OT and [employer]ER are consulted Continue neuro checks Continue cardiac monitoring. So far no a-fib or flutter. Patient was counseled on tobacco cessation. We'll defer the rest of the medical management to the primary team For DVT prophylaxis: Continue subq heparin 5000U every 12 hours. Upon discharge, the patient needs to follow-up with her neurologist within 1-2 weeks (Dr. Denney). The plan is discussed with the patient. If work-up are complete and negative, then patient is clear from neurological perspective. (MRI Brain is reported as negative for stroke and no enhancement). Nabil Dean MD Neuro-Hospitalist Time with Patient: Less than 30
--- NOTE | 2021-04-17 14:31 | MR ---
EXAMINATION TYPE: MR brain wo/w con DATE OF EXAM: 04/17/2021 COMPARISON: CT brain 04/16/2021 HISTORY: Stroke: facial numbness, weakness and speech difficulties TECHNIQUE: Multiplanar, multisequence images of the brain and brainstem is performed without and with IV contras t, utilizing 9 mL intravenous Gadavist . FINDINGS: Diffusion weighted images demonstrate no evidence of a recent infarct or other diffusion ab normality. There is no extra-axial fluid collection or significant white matter signal abnormality. The ventricular system and cisternal spaces are normal in size and appearance. The brain volume is age appropriate. Midline structures demonstrate a partially empty sella. The craniocervical junction appears within n ormal limits. Post contrast images demonstrate no abnormal enhancement. The dural venous sinuses jeanie ear patent. The visualized sinuses are clear and the globes are intact. IMPRESSION: No evident subacute ischemia
[2021-04-17 16:24] LABS: Chol/HDL Ratio 2.84 Ratio; LDL Cholesterol,Calculated 69.1 mg/dL (0.0-131.0)
[2021-04-17 16:56] LABS: Vitamin B12 <150.0 pg/mL (200.0-944.0)
== END 2021-04-17 18:18 | disposition home or self-care (01) | DRG 69 ==
LOC: EC 00:37 → 3SCARD 01:40
PROVIDERS: ADMIT Family Medicine; ATTEND Family Medicine
DX: G45.9 Transient cerebral ischemic attack, unspecified (principal); I10 Essential (primary) hypertension; R47.1 Dysarthria and anarthria; R29.810 Facial weakness; Z20.822 Contact with and (suspected) exposure to COVID-19; G43.109 Migraine with aura, not intractable, without status migrainosus; I25.2 Old myocardial infarction; F41.8 Other specified anxiety disorders; R20.2 Paresthesia of skin; F17.210 Nicotine dependence, cigarettes, uncomplicated; F32.A Depression, unspecified; G43.909 Migraine, unspecified, not intractable, without status migrainosus; Z98.84 Bariatric surgery status; Z79.82 Long term (current) use of aspirin; Z79.899 Other long term (current) drug therapy; Z90.710 Acquired absence of both cervix and uterus; Z71.6 Tobacco abuse counseling
CPT/HCPCS: 36415; 70450; 70496; 70498; 70553; 71045; 80048; 80053; 80061; 82607; 84443; 84484; 85025; 85610; 85730; 87635; 93005; 93306; 96372; 99285

== ENCOUNTER 2022-06-27 02:51 | Emergency (ER) | payer BC ==
[2022-06-27 02:59] VITALS: BP 160/120; PULSE 74; RESP 16; TEMP 97.8
--- NOTE | 2022-06-27 03:46 | ED ---
Headache HPI - General Chief Complaint: Headache Stated Complaint: High blood pressure Time Seen by Provider: 06/27/22 03:40 Source: patient, RN notes reviewed Mode of arrival: ambulatory Limitations: no limitations - History of Present Illness Initial Comments: This is a 46-year-old female who presents to the emergency department with elevated blood pressure and headaches. She has been checking her blood pressure each night out of concern that it is higher than normal. States that it has been consistently in the 160s/110s. Reports associated headaches. Denies any visual changes, chest pain, shortness of breath, nausea, or vomiting. She is taking her medications as prescribed. MD Complaint: headache - Related Data Home Medications Medication Instructions Recorded Confirmed Citalopram Hydrobromide 40 mg PO DAILY 03/27/20 04/16/21 [Citalopram HBr] Propranolol HCl [Inderal Xl] 80 mg PO BID 04/16/21 04/16/21 Propranolol HCl [Propranolol HCl 160 mg PO BID 04/16/21 04/16/21 ER] Rimegepant Sulfate [Nurtec Odt] 75 mg PO DAILY PRN 04/16/21 04/16/21 Triamterene-Hctz 37.5-25Mg 1 cap PO DAILY 04/16/21 04/16/21 [Dyazide 37.5-25 Capsule] lamoTRIgine [LaMICtal] 150 mg PO BID 04/16/21 04/16/21 Previous Rx's Medication Instructions Recorded buPROPion XL [Wellbutrin XL] 300 mg PO DAILY #30 tab.er.24h 04/19/20 Aspirin 81 mg PO DAILY #30 tab 04/17/21 Allergies Allergy/AdvReac Type Severity Reaction Status Date / Time No Known Allergies Allergy Verified 06/27/22 02:59 Review of Systems ROS Statement: Those systems with pertinent positive or pertinent negative responses have been documented in the HPI. ROS Other: All systems not noted in ROS Statement are negative. Past Medical History Past Medical History: Hypertension Additional Past Medical History / Comment(s): migraines/mixed anxiety and depression History of Any Multi-Drug Resistant Organisms: None Reported Past Surgical History: Bariatric Surgery, Bladder Surgery, Section, Hysterectomy Additional Past Surgical History / Comment(s): gastric bypass Past Anesthesia/Blood Transfusion Reactions: No Reported Reaction Past Psychological History: Anxiety, Depression Smoking Status: Current some day smoker Past Alcohol Use History: Occasional Past Drug Use History: None Reported - Past Family History Father History Unknown: Yes Additional Family Medical History / Comment(s): brain anueryism Mother History Unknown: Yes Additional Family Medical History / Comment(s): depression, anxiety General Exam - General Exam Comments Initial Comments: Visual Physical Exam Vital signs reviewed General: Well-appearing, nontoxic, no acute distress. Head: Normocephalic, atraumatic Eyes: PERRLA, EOMI ENT: Airway patent Chest: Nonlabored breathing Skin: No visual rash, normal skin tone Neuro: Alert and oriented 3 Musculoskeletal: No gross abnormalities Limitations: no limitations Course Vital Signs 06/27/22 02:55 Temperature 97.8 F Pulse Rate 74 Respiratory 16 Rate Blood Pressure 160/120 O2 Sat by Pulse 94 L Oximetry Medical Decision Making - Medical Decision Making Patient eloped from the emergency department prior to completion and review of the ordered testing. Disposition Clinical Impression: Hypertension Disposition: Left Against Medical Advice Referrals: Tony Fulton MD [Primary Care Provider] - 1-2 days
--- NOTE | 2022-06-27 04:33 | CT ---
EXAMINATION TYPE: CT brain wo con DATE OF EXAM: 06/27/2022 COMPARISON: April 16, 2021 HISTORY: headache, high BP, nausea CT DLP: 1099.6 mGycm Automated exposure control for dose reduction was used. Images of the brain obtained with no contrast. Ventricles have normal size. There is no mass effect or midline shift. No sign of intracranial hemorr eulalio. Calvarium is intact. There is normal aeration of the mastoid sinuses. IMPRESSION: Negative unenhanced head CT scan no change.
== END 2022-06-27 04:00 | disposition left against medical advice (07) ==
LOC: EC 02:51
DX: I10 Essential (primary) hypertension (principal); F32.A Depression, unspecified; F41.9 Anxiety disorder, unspecified; F17.200 Nicotine dependence, unspecified, uncomplicated; Z53.29 Procedure and treatment not carried out because of patient's decision for other reasons; Z79.899 Other long term (current) drug therapy; Z98.84 Bariatric surgery status
CPT/HCPCS: 70450; 93005; 99283

== ENCOUNTER → 2022-10-25 | Outpatient (CLI) | payer BC ==
--- NOTE | 2022-10-28 08:11 | MM ---
Reason for Exam: Screening (asymptomatic). Patient History: Menarche at age 12. First Full-Term at age 18. Hysterectomy at age 32. Premenopausal. Risk Values: Nagle 5 year model risk: 0.8%. NCI Lifetime model risk: 7.5%. Tissue Density: The breast tissue is heterogeneously dense. This may lower the sensitivity of mammography. Findings: Analyzed By CAD. There is no suspicious group of microcalcifications or new suspicious mass in either breast. Overall Assessment: Negative, BI-RAD 1 Management: Screening Mammogram of both breasts in 1 year. . Patient should continue monthly self-breast exams. A clinical breast exam by your physician is recommended on an annual basis. This exam should not preclude additional follow-up of suspicious palpable abnormalities. Note on Angle scores and lifetime risk: 1. A Angle score greater than 3% is considered moderate risk. If this is the case, consider specialist referral to assess eligibility for a risk reducing agent. 2. If overall lifetime risk for the development of breast cancer is 20% or higher, the patient may qualify for future screening with alternating mammogram and breast MRI. Electronically signed and approved by: Jason Dueñas M.D. Radiologis
== END | disposition home or self-care (01) ==
LOC: RADMAMWWP 13:08
PROVIDERS: ATTEND Family Medicine
DX: Z12.31 Encounter for screening mammogram for malignant neoplasm of breast (principal)
CPT/HCPCS: 77063; 77067

== ENCOUNTER → 2024-10-04 | Outpatient (CLI) | payer BC ==
[2024-10-04 15:20] LABS: Basophils # (A) 0.01 X 10*3/uL (0.00-0.10); Basophils % (A) 0.2 %; Eosinophils # (A) 0 X 10*3/uL (0.04-0.35); Eosinophils % (A) 0 %; HCT 40.9 % (37.2-46.3); HGB 13.5 g/dL (12.0-15.0); Lymphocytes # (A) 1.66 X 10*3/uL (0.90-5.00); Lymphocytes % (A) 33.9 %; MCH 33.7 pg (27.0-32.0); Monocytes # (A) 0.31 X 10*3/uL (0.20-1.00); Monocytes % (A) 6.3 %; NRBC Per 100 WBC 0 X 10*3/uL (0.00-0.01); Neutrophils # (A) 2.91 X 10*3/uL (1.80-7.70); Neutrophils % (A) 59.4 %; Platelet Count 295 X 10*3/uL (140-440); RBC 4.01 X 10*6/uL (4.10-5.20)
[2024-10-04 15:35] LABS: ALT 51 U/L (8-44); AST 50 U/L (13-35); Albumin/Globulin Ratio 1.48 Ratio (1.60-3.17); Alkaline Phosphatase 84 U/L (41-126); Blood Urea Nitrogen 11.9 mg/dL (9.0-27.0); Calcium 9.3 mg/dL (8.7-10.3); Carbon Dioxide 26.2 mmol/L (21.6-31.8); Chloride 100 mmol/L (96-109); Globulin 2.7 g/dL (1.6-3.3); Glucose 145 mg/dL (70-110); Potassium 3.7 mmol/L (3.5-5.5); Sodium 138 mmol/L (135-145); Total Bilirubin 0.4 mg/dL (0.3-1.2); Total Protein 6.7 g/dL (6.2-8.2)
[2024-10-04 21:50] LABS: Urine Alcohol Negative (Negative); Urine Barbiturate Negative (Negative); Urine Cocaine Negative (Negative); Urine Methadone Negative (Negative); Urine Opiates Negative (Negative); Urine Phencyclidine Negative (Negative)
== END | disposition home or self-care (01) ==
LOC: LABWHC1 10:30
PROVIDERS: ATTEND Psychiatry & Neurology Psychiatry
DX: F10.20 Alcohol dependence, uncomplicated (principal)
CPT/HCPCS: 36415; 80053; 80306; 82306; 82607; 82746; 84443; 84481; 85025